=== PATIENT | female | born 1950 | race Hispanic/Latino ===

== ENCOUNTER 2018-03-30 20:06 | Emergency (ER) | payer OTHER, MEDICARE ==
[2018-03-30 21:29] LABS: BASOPHILS % (AUTO) 1.2 % (0.0-5.0); HEMATOCRIT 39.4 % (36-48); LYMPHOCYTES % (AUTO) 26.4 % (21.0-51.0); MEAN CORPUSCULAR HEMOGLOBIN 30.6 pg (27.0-33.0); MEAN CORPUSCULAR HGB CONC 33.3 g/dL (32.0-36.0); MEAN CORPUSCULAR VOLUME 92.1 fL (79-99); NEUTROPHILS % (AUTO) 61.4 % (40.0-77.0); NUCLEATED RED BLOOD CELLS 0.1 % (0.0-0.19); PLATELET COUNT (AUTO) 216 K/uL (130-400); RED BLOOD CELL COUNT(AUTO) 4.28 MIL/uL (4.00-5.50); RED CELL DISTRIBUTION WIDTH 13.9 % (11.0-15.5); WHITE BLOOD COUNT (AUTO) 8.3 K/uL (4.8-10.8)
[2018-03-30 21:50] LABS: CREATININE 0.6 mg/dL (0.5-1.5); POTASSIUM 3.4 mmol/L (3.5-5.1)
[2018-03-30] MEDS ORDERED: KETOROLAC TROMETHAMINE 30MG/ML ONE (21:50)
[2018-03-30 21:55] LABS: ALBUMIN 3.3 g/dL (3.5-5.0); BILIRUBIN,TOTAL 0.3 mg/dL (0.2-1.0); TOTAL PROTEIN, SERUM 6.4 g/dL (6.0-8.3)
[2018-03-30 22:10] LABS: B-TYPE NATRIURETIC PEPTIDE 15 pg/mL (0-100)
[2018-03-30] MEDS ORDERED: POTASSIUM CHLORIDE 20 MEQ ERTAB PO ONE (23:14)
== END 2018-03-30 23:47 | disposition home or self-care (01) ==
LOC: EDH 20:06
DX: F41.9 Anxiety disorder, unspecified (principal); M13.811 Other specified arthritis, right shoulder; E78.5 Hyperlipidemia, unspecified; I10 Essential (primary) hypertension; E07.9 Disorder of thyroid, unspecified; G20 Parkinson's disease; I25.10 Atherosclerotic heart disease of native coronary artery without angina pectoris; Z95.0 Presence of cardiac pacemaker; Z88.8 Allergy status to other drugs, medicaments and biological substances
CPT/HCPCS: 36415; 71045; 80053; 82550; 83880; 84484; 85025; 93005; 96372; 99284; J1885

== ENCOUNTER → 2018-04-30 | Outpatient (CLI) | payer OTHER, MEDICARE | END | disposition home or self-care (01) | LOC: SHCH 11:40 | PROVIDERS: ATTEND Internal Medicine Cardiovascular Disease | DX: I35.1 Nonrheumatic aortic (valve) insufficiency (principal); I48.0 Paroxysmal atrial fibrillation; I47.0 Re-entry ventricular arrhythmia; Z95.0 Presence of cardiac pacemaker | CPT/HCPCS: 93306 ==

== ENCOUNTER → 2019-02-01 | Outpatient (CLI) | payer MEDICARE | END | disposition home or self-care (01) | LOC: OIH 14:28 | PROVIDERS: ATTEND Family Medicine | DX: M25.561 Pain in right knee (principal); M25.562 Pain in left knee | CPT/HCPCS: 73562 ==

== ENCOUNTER → 2019-03-07 | Outpatient (CLI) | payer OTHER, MEDICARE | END | disposition home or self-care (01) | LOC: RAH 14:58 | PROVIDERS: ATTEND Family Medicine | DX: G44.89 Other headache syndrome (principal); R31.9 Hematuria, unspecified | CPT/HCPCS: 70450; 76770 ==

== ENCOUNTER → 2022-02-18 | Outpatient (CLI) | payer MEDICARE ==
[2022-02-18 12:28] LABS: HEMATOCRIT 40.9 % (36-48)
== END | disposition home or self-care (01) ==
LOC: LAB 09:52
PROVIDERS: ATTEND Internal Medicine Cardiovascular Disease
DX: I48.0 Paroxysmal atrial fibrillation (principal)
CPT/HCPCS: 36415; 85014; 85018

== ENCOUNTER → 2022-10-07 | Outpatient (CLI) | payer OTHER, MEDICARE ==
[2022-10-07 12:13] LABS: BASOPHILS % (AUTO) 0.4 % (0.0-5.0); EOSINOPHILS % (AUTO) 3.8 % (0.0-8.0); HEMATOCRIT 43.9 % (36-48); LYMPHOCYTES % (AUTO) 26.6 % (21.0-51.0); MEAN CORPUSCULAR HEMOGLOBIN 29.7 pg (27.0-33.0); MEAN CORPUSCULAR HGB CONC 31.4 g/dL (32.0-36.0); MEAN CORPUSCULAR VOLUME 94.4 fL (79-99); MONOCYTES % (AUTO) 7.8 % (3.0-13.0); NEUTROPHILS % (AUTO) 61.1 % (40.0-77.0); PLATELET COUNT (AUTO) 263 K/uL (130-400); RED BLOOD CELL COUNT(AUTO) 4.65 MIL/uL (4.00-5.50); RED CELL DISTRIBUTION WIDTH 12.3 % (11.0-15.5); WHITE BLOOD COUNT (AUTO) 7.7 K/uL (4.8-10.8)
[2022-10-07 12:28] LABS: ALBUMIN 3.6 g/dL (3.5-5.0); CREATININE 0.6 mg/dL (0.5-1.5); DIGOXIN 0.77 ng/mL (0.50-2.00); TOTAL PROTEIN, SERUM 7.2 g/dL (6.0-8.3)
== END | disposition home or self-care (01) ==
LOC: LAB 08:43
PROVIDERS: ATTEND Internal Medicine Cardiovascular Disease
DX: I48.0 Paroxysmal atrial fibrillation (principal)
CPT/HCPCS: 36415; 80053; 80162; 85025

== ENCOUNTER → 2023-12-07 | Outpatient (CLI) | payer OTHER, MEDICARE ==
[2023-12-07 12:12] LABS: BASOPHILS # (AUTO) 0.05 K/uL (0.00-0.20); BASOPHILS % (AUTO) 0.5 % (0.0-5.0); EOSINOPHILS # (AUTO) 0.24 K/uL (0.00-0.70); EOSINOPHILS % (AUTO) 2.6 % (0.0-8.0); HEMATOCRIT 42.6 % (36-48); IMMATURE GRANULOCYTE ABSOLUTE 0.03 K/uL (0-1); LYMPHOCYTES # (AUTO) 2.1 K/uL (1.0-4.8); MEAN CORPUSCULAR HEMOGLOBIN 30.3 pg (27.0-33.0); MEAN CORPUSCULAR HGB CONC 32.6 g/dL (32.0-36.0); MEAN CORPUSCULAR VOLUME 92.8 fL (79-99); MONOCYTES # (AUTO) 0.6 K/uL (0.1-1.0); MONOCYTES % (AUTO) 6.9 % (3.0-13.0); NEUTROPHILS # (AUTO) 6.1 K/uL (1.8-7.7); NEUTROPHILS % (AUTO) 66.7 % (40.0-77.0); PLATELET COUNT (AUTO) 272 K/uL (130-400); RED BLOOD CELL COUNT(AUTO) 4.59 MIL/uL (4.00-5.50); RED CELL DISTRIBUTION WIDTH 12.3 % (11.0-15.5); WHITE BLOOD COUNT (AUTO) 9.1 K/uL (4.8-10.8)
[2023-12-07 12:34] LABS: CREATININE 0.6 mg/dL (0.5-1.0); MAGNESIUM 1.9 mg/dL (1.80-2.40); POTASSIUM 3.9 mmol/L (3.5-5.1)
== END | disposition home or self-care (01) ==
LOC: LAB 08:28
PROVIDERS: ATTEND Internal Medicine Cardiovascular Disease
DX: I48.0 Paroxysmal atrial fibrillation (principal); R53.83 Other fatigue; D68.59 Other primary thrombophilia
CPT/HCPCS: 36415; 80048; 83735; 85025

== ENCOUNTER 2024-02-27 23:38 | Inpatient (IN) | payer OTHER, MEDICARE ==
[~2024-02-27] VITALS: Ht 152.4 cm; Wt 56.5 kg
--- NOTE | 2024-02-28 00:02 | ERN ---
ED Note History of Present Illness Stated Complaint: ABD PAIN Chief Complaint: Abdominal Pain Time Seen by MD: 23:42 Dictation: PATIENT IS A 73-YEAR-OLD FEMALE HERE WITH HER GRANDDAUGHTER WITH COMPLAINTS OF BURPING ALL DAY WITH HER ABDOMEN DISTENDED AND IT IS GETTING WORSE. SHE ALSO STATES NOW IT IS MOVING INTO MY CHEST. NO FEVER NO CHILLS NO NAUSEA NO VOMITING. SHE STATES SHE WENT TO [facility] THIS MORNING WITH THE SAME COMPLAINT AND THEY GAVE ME A SHOT THAT MAKE MY STOMACH FEEL BETTER AND SAID IT WOULD GO AWAY. SHE STATES SHE IS PENDING A COLONOSCOPY AND ENDOSCOPY BY HER ORDNANCE ENGINEER, DR. BAH NEXT THURSDAY. Allergies: Coded Allergies: cefoxitin (Unverified Allergy, Unknown, 02/27/24) Past Medical History Past Medical History: Hypertension, Other Additional Past Medical Hx: PARKINSONS, THYROID. POOR HISTORIAN Surgical History: Hysterectomy, Pacer/AICD PSYCH History: no pertinent psych hx History: Not Applicable RN Note Reviewed/Agreed w/PFSH: Yes Review of System Dictation CONSTITUTIONAL: NEGATIVE EXCEPT FOR HPI HEAD/FACE: NEGATIVE EXCEPT FOR HPI EENT: NEGATIVE EXCEPT FOR HPI RESPIRATORY: NEGATIVE EXCEPT FOR HPI GASTROINTESTINAL/ABDOMINAL: NEGATIVE EXCEPT FOR HPI BELCHING WITH DISTENTION AND LOWER QUADRANT PAIN GENITOURINARY: NEGATIVE EXCEPT FOR HPI MUSCULOSKELETAL: NEGATIVE EXCEPT FOR HPI INTEGUMENTARY: NEGATIVE EXCEPT FOR HPI NEUROLOGICAL/PSYCH: NEGATIVE EXCEPT FOR HPI HEMATOLOGIC/LYMPHATIC: NEGATIVE EXCEPT FOR HPI ALL SYSTEMS NEGATIVE, EXCEPT NOTED ABOVE. 13 POINT REVIEW OF SYSTEMS ASSESSED AND ALL NEGATIVE EXCEPT FOR ABOVE. Initial Vital Sign VS Vital Signs Date Time Temp Pulse Resp B/P (MAP) Pulse Ox O2 Delivery O2 Flow Rate FiO2 02/27/24 23:39 99.0 89 16 126/74 98 Room Air 02/28/24 00:02 0 21 Physical Exam Dictation VITAL SIGNS REVIEWED GENERAL APPEARANCE: ALERT, ORIENTED X 3, MODERATE ACUTE DISTRESS, WELL DEVELOPED, NOURISHED. HEAD AND FACE: NON-TRAUMATIC. EYES: PERRL, PINK CONJUNCTIVAS, EYELID NO TRAUMA, ANTERIOR CHAMBER WITH ARCUS SENILIS. EARS: PINNAS INTACT AND NO SIGNS OF TRAUMA OR ERYTHEMA EAR CANALS CLEAR AND NO DISCHARGE TM NO ERYTHEMA NOSE: NO DISCHARGE, NO BLEEDING. OROPHARYNX: MOUTH NORMAL, TONGUE PINK, PHARYNX CLEAR,NO ERYTHEMA, TONSILS NO EXUDATES, NO ABSCESSES NOTED, MUCOUS MEMBRANE MOIST NECK: SUPPLE, NON-TENDER, NO THYROMEGALY, NO MASSES, NO JVD, NO BRUITS BREAST:DEFERRED CHEST:NO TENDERNESS, NO CREPITUS, NO PARADOXICAL MOVEMENT, NO RETRACTIONS LUNGS:CLEAR, WELL-VENTILATED, SYMMETRIC, NO RALES, NO WHEEZING, NO RHONCHI, NO STRIDOR, GOOD BREATH SOUNDS BILATERALLY HEART: REGULAR RATE, REGULAR RHYTHM, NO MURMUR, NO GALLOPS VASCULAR: NO PERIPHERAL EDEMA, ABDOMEN: SOFT, POSITIVE BOWEL SOUNDS, NONDISTENDED, NO GUARDING, LEFT UPPER AND LOWER QUADRANT TENDERNESS WITH PALPATION. HYPOACTIVE BOWEL RECTAL: DEFERRED GENITAL: DEFERRED NEUROLOGICAL: NORMAL SPEECH, MOTOR FUNCTION INTACT, SENSORY FUNCTION INTACT MUSCULOSKELETAL: NECK NONTENDER, FULL RANGE OF MOTION, BACK NONTENDER, FULL RANGE OF MOTION, EXTREMITIES: NONTENDER, FULL RANGE OF MOTION SKIN: COLOR PINK, DRY, NO TURGOR, NO RASH, NO LACERATIONS, NO ABRASIONS, NO CONTUSIONS. LYMPHATIC: DEFERRED Results (Laboratory/Radiology) Laboratory/Radiology Laboratory Tests Test 02/27/24 23:59 02/28/24 01:25 White Blood Count 8.9 K/uL (4.8-10.8) Red Blood Count 4.33 MIL/uL (4.00-5.50) Hemoglobin 13.3 g/dL (12.0-16.0) Hematocrit 39.4 % (36-48) Mean Corpuscular Volume 91.0 fL (79-99) Mean Corpuscular Hemoglobin 30.7 pg (27.0-33.0) Mean Corpuscular Hemoglobin Concent 33.8 g/dL (32.0-36.0) Red Cell Distribution Width 11.9 % (11.0-15.5) Platelet Count 255 K/uL (130-400) Mean Platelet Volume 9.9 fL (7.5-10.5) Immature Granulocyte % (Auto) 0.3 % (0-1) Neutrophils (%) (Auto) 67.1 % (40.0-77.0) Lymphocytes (%) (Auto) 23.0 % (21.0-51.0) Monocytes (%) (Auto) 9.1 % (3.0-13.0) Eosinophils (%) (Auto) 0.2 % (0.0-8.0) Basophils (%) (Auto) 0.3 % (0.0-5.0) Neutrophils # (Auto) 6.0 K/uL (1.8-7.7) Lymphocytes # (Auto) 2.1 K/uL (1.0-4.8) Monocytes # (Auto) 0.8 K/uL (0.1-1.0) Eosinophils # (Auto) 0.02 K/uL (0.00-0.70) Basophils # (Auto) 0.03 K/uL (0.00-0.20) Absolute Immature Granulocyte (auto 0.03 K/uL (0-1) Nucleated Red Blood Cells 0.0 % (0.0-0.19) Sodium Level 137 mmol/L (136-145) Potassium Level 3.1 mmol/L (3.5-5.1) L Chloride Level 100 mmol/L (101-111) L Carbon Dioxide Level 29 mmol/L (21-32) Blood Urea Nitrogen 7 mg/dL (7-18) Creatinine 0.7 mg/dL (0.5-1.0) Glomerular Filtration Rate Calc 91 mL/min (>90) Random Glucose 110 mg/dL (70-105) H Total Calcium 9.3 mg/dL (8.5-10.1) Magnesium Level 2.00 mg/dL (1.80-2.40) Total Bilirubin 0.5 mg/dL (0.2-1.0) Direct Bilirubin 0.1 mg/dL (0.0-0.3) Aspartate Amino Transf (AST/SGOT) 11 U/L (10-37) Alanine Aminotransferase (ALT/SGPT) < 6 U/L (12-78) L Alkaline Phosphatase 69 U/L (50-136) Troponin I High Sensitivity 6 ng/L (4-50) Total Protein 6.6 g/dL (6.0-8.3) Albumin 3.7 g/dL (3.5-5.0) Lipase 24 U/L (16-77) Urine Color COLORLESS (YELLOW) Urine Appearance CLEAR (CLEAR) Urine pH 7.5 (5.0-8.0) Urine Specific [place] 1.002 (1.001-1.031) Urine Protein NEGATIVE mg/dL (NEGATIVE) Urine Glucose (UA) NEGATIVE mg/dL (NEGATIVE) Urine Ketones NEGATIVE mg/dL (NEGATIVE) Urine Occult Blood NEGATIVE (NEGATIVE) Urine Nitrate NEGATIVE (NEGATIVE) Urine Bilirubin NEGATIVE mg/dL (NEGATIVE) Urine Urobilinogen 0.2 mg/dL (0.2-1.0) Urine Leukocyte Esterase 75 Artie/uL (NEGATIVE) H Urine RBC 0-1 /HPF (0-1) Urine WBC 6-10 /HPF (0-1) H Urine Squamous Epithelial Cells FEW /HPF (0-2) Urine Bacteria FEW /HPF (None Seen) REASON: LEFT LOWER QUADRANT PAIN WITH BLOATING ORDERING PHYSICIAN: JENNIFER DUCKWORTH NP PROCEDURE: ABD PEL W - CT ABDOMEN/PELVIS W/CONTRAST CT ABDOMEN/PELVIS W/CONTRAST HISTORY: Pain COMPARISON: None TECHNIQUE: Multiple sequential axial images of the abdomen and pelvis were obtained from the dome of the diaphragm through symphysis pubis. Patient was given 75 cc of Omnipaque through intravenous route. Oral contrast was not given. FINDINGS: No pleural effusion is seen bilaterally. There is no evidence of parenchymal disease or pulmonary nodule of the visualized lower lungs. Degenerative changes of the thoracolumbar spine are present. The heart is not enlarged. Gallstones are seen in the distended gallbladder. Liver measures 16 cm. The liver, spleen, adrenal glands and pancreas are unremarkable. There is no evidence of hydronephrosis bilaterally. No evidence of renal stone is seen. Fecal material is seen in the colon. There are normal size retroperitoneal and mesenteric lymph nodes. No ascites is seen. Atherosclerotic changes are present. No CT evidence of acute appendicitis is seen. There is mild diverticulosis. Pelvic sidewalls are symmetric bilaterally. Bladder is well distended without wall thickening. IMPRESSION: 1. Gallstones in the distended gallbladder. Fecal material in the colon. CHEST 1VW HISTORY: Shortness of breath COMPARISON: 03/30/2018 FINDINGS: A frontal projection of the chest was obtained. No acute pulmonary infiltrates is seen. The heart is borderline enlarged. Pacemaker is seen entering from the left. Degenerative changes are seen. No evidence of aortic calcification is seen. IMPRESSION: 1. No acute pulmonary infiltrate is seen. Labs Reviewed?: Yes EKG Comment: EKG sinus rhythm/heart rate left ventricular hypertrophy noted anterior leads QT interval 509 milliseconds 8 ED Course ED Course Orders Procedure Category Date Status Time Cbc With Differential LAB 02/27/24 Complete 23:40 Basic Metabolic Panel LAB 02/27/24 Complete 23:40 Troponin I High LAB 02/27/24 Complete Sensitivity 23:40 Magnesium LAB 02/27/24 Complete 23:40 Chest 1vw RAD 02/27/24 Resulted 23:40 12 Lead Ekg Tracing- EKG 02/27/24 Logged Technical 23:40 Urinalysis Profile LAB 02/27/24 Complete 23:40 Lipase LAB 02/27/24 Complete 23:40 Hepatic Function Panel LAB 02/27/24 Complete 23:40 Ct Abdomen/Pelvis CT 02/27/24 Resulted W/Contrast 23:56 0.9%Nacl 1000ml (Ns PHA 02/28/24 Complete 1000ml) 00:00 Ketorolac PHA 02/28/24 Complete Tromethamine 15mg/Ml 00:00 Iohexol (Omnipaque) PHA 02/28/24 Complete 00:41 Potassium Bicarb/Cit PHA 02/28/24 Complete Ac 25meq (K-Lyte Ta 01:00 Culture Urine VERN 02/28/24 In Process 01:38 Magnesium Citrate PHA 02/28/24 Complete (Magnesium Citrate) 02:00 Lactulose 20 Gm/30 Ml PHA 02/28/24 Complete Udcup (Constulose 02:00 Levofloxacin 500 PHA 02/28/24 In Process Mg/D5w 100 Ml 02:30 Current Medications Medications (Trade) Dose Ordered Sig/Sridevi Route PRN Reason Start Time Stop Time Status Last Admin Dose Admin Iohexol (Omnipaque) 75 ml STK-MED ONCE IV 02/28/24 00:41 02/28/24 00:42 DC Ketorolac Tromethamine (toRADol) 15 mg ONCE ONCE IV 02/28/24 00:00 02/28/24 00:01 DC 02/28/24 00:09 Lactulose (Constulose 20gm/ 30ml Udcup) 20 gm ONCE ONCE PO 02/28/24 02:00 02/28/24 02:01 DC 02/28/24 01:50 Levofloxacin/ Dextrose 100 ml @ 100 mls/hr Q24H IV 02/28/24 02:30 03/09/24 02:29 Magnesium Citrate (Magnesium Citrate) 296 ml ONCE ONCE PO 02/28/24 02:00 02/28/24 02:01 DC 02/28/24 01:50 Potassium Bicarbonate (K-Lyte Tablet Eff 25 Meq Tablet.eff) 25 meq ONCE ONCE PO 02/28/24 01:00 02/28/24 01:01 DC 02/28/24 01:07 Sodium Chloride 1,000 ml @ 0 mls/hr ONCE ONCE IV 02/28/24 00:00 02/28/24 00:01 DC 02/28/24 00:09 Vital Signs Date Time Temp Pulse Resp B/P (MAP) Pulse Ox O2 Delivery O2 Flow Rate FiO2 02/28/24 01:10 75 19 125/41 100 Room Air* 0 21 02/28/24 00:02 81 18 148/69 100 Room Air* 0 21 02/27/24 23:39 99.0 89 16 126/74 98 Room Air 0135, SPOKE WITH DR. KIDD AND REVIEWED LABS CT AND FINDINGS AT THIS TIME HE WANTS PATIENT BE TREATED FOR ACUTE CONSTIPATION WITH LACTULOSE 30 ML AND MAGNESIUM CITRATE TO TREAT FOR CONSTIPATION 0220, SPOKE WITH DR. KIDD NOW AFTER URINE RECEIVED AND SHE HAS A URINARY TRACT INFECTION HE AGREED TO ADMIT PATIENT. HEART Score Response (Comments) Value EKG: Repolarization changes 1 Age: > 65yrs (+2) 2 Risk Factors: 1-2 risk factors (+1) 1 Initial Troponin: Normal limit (0) 0 Total 4 Medical Decision Making MDM MDM: DIFFERENTIAL DIAGNOSIS: APPENDICITIS/CHOLELITHIASIS/CHOLEDOCHOLITHIASIS/CONSTIPATION/DIVERTICULITIS/PANC REATITIS/UTI/ACS RATIONALE: TESTS CONSIDERED AND ORDERED SECONDARY TO SHARED DECISION MAKING INCLUDE: LABS, ECG AND RADIOLOGY PREVIOUS OUTSIDE RECORDS REVIEWED: OLD ER VISITS. REVIEWED RISK OF COMPLICATION AND/OR MORBIDITY OR MORTALITY OF PATIENT MANAGEMENT: NONE MEDICATIONS-PER MEDICATION RECONCILIATION NEED FOR HOSPITALIZATION: PATIENT DOES MEET CRITERIA FOR HOSPITALIZATION. PAIN MANAGEMENT AND PROBABLE SURGICAL EVALUATION FOR DEBBIE LITHIASIS AND BILIARY COLIC ALSO REHYDRATION NEED FOR EMERGENCY MAJOR/MINOR SURGERY: NO THERE ARE NO SOCIAL CONCERNS WITH THIS PATIENT. PRESCRIPTION DRUG MANAGEMENT PRESCRIPTIONS WILL INCLUDE SYMPTOMATIC CARE PATIENT'S PRIOR EXTERNAL MEDICAL RECORDS FROM OTHER ER VISITS WERE REVIEWED BY ME INDICATED. PRIOR TESTING AND RESULTS FROM PREVIOUS VISITS WERE REVIEWED. PRIOR TESTS WERE TAKEN INTO ACCOUNT WITH MEDICAL DECISION MAKING AND RESOURCE UTILIZATION, INDEPENDENT HISTORIAN/HISTORIANS WERE USED TO OBTAIN COMPLETE MEDICAL HISTORY. I INDEPENDENTLY INTERPRETED THE TEST THAT WERE PERFORMED, RESULTS WERE REVIEWED BY ME AND CONSIDERED FINDINGS ON RADIOLOGY IF ORDERED. MEDICAL MANAGEMENT AND EXAMINATION INTERPRETATION DISCUSSIONS WERE HAD BY ME WITH OTHER QUALIFIED HEALTHCARE PROFESSIONALS INDICATED FOR THE PATIENT'S CARE. DX & DISP Disposition: Inpatient Decision to Admit Time: 01:41 Departure Impression: Primary Impression: Cholelithiasis Additional Impressions: Biliary colic, Constipation, Acute UTI, Hypokalemia, Hypochloremia, Intractable abdominal pain Condition: Stable Referrals: BOGDAN BOYD MD (PCP) Time of Disposition: 02:23 I have reviewed the case, and I agree with, Diagnosis and Plan JENNIFER DUCKWORTH NP Feb 28, 2024 00:01
[2024-02-28] MEDS: ketOROlac 15MG/ML VIAL (15MG/ML) IV ONE (00:09)
[2024-02-28] MEDS: 0.9%NACL 1000ML 1,000 ML IV ONE (00:09)
[2024-02-28 00:26] LABS: ALBUMIN 3.7 g/dL (3.5-5.0); ASPARTATE AMINOTRANSFERASE 11 U/L (10-37); BILIRUBIN,DIRECT 0.1 mg/dL (0.0-0.3); BILIRUBIN,TOTAL 0.5 mg/dL (0.2-1.0); CARBON DIOXIDE 29 mmol/L (21-32); CHLORIDE 100 mmol/L (101-111); CREATININE 0.7 mg/dL (0.5-1.0); GLOMERULAR FILTR. RATE CALC 91 mL/min (>90); GLUCOSE,RANDOM 110 mg/dL (70-105); POTASSIUM 3.1 mmol/L (3.5-5.1); SODIUM SERUM 137 mmol/L (136-145); TOTAL PROTEIN, SERUM 6.6 g/dL (6.0-8.3); UREA NITROGEN, BLOOD 7 mg/dL (7-18)
[2024-02-28 00:29] LABS: ALANINE AMINOTRANSFERASE < 6 U/L (12-78)
[2024-02-28 00:35] LABS: BASOPHILS # (AUTO) 0.03 K/uL (0.00-0.20); BASOPHILS % (AUTO) 0.3 % (0.0-5.0); EOSINOPHILS # (AUTO) 0.02 K/uL (0.00-0.70); EOSINOPHILS % (AUTO) 0.2 % (0.0-8.0); HEMATOCRIT 39.4 % (36-48); IMMATURE GRANULOCYTE ABSOLUTE 0.03 K/uL (0-1); LYMPHOCYTES # (AUTO) 2.1 K/uL (1.0-4.8); MEAN CORPUSCULAR HEMOGLOBIN 30.7 pg (27.0-33.0); MEAN CORPUSCULAR HGB CONC 33.8 g/dL (32.0-36.0); MONOCYTES # (AUTO) 0.8 K/uL (0.1-1.0); MONOCYTES % (AUTO) 9.1 % (3.0-13.0); NEUTROPHILS % (AUTO) 67.1 % (40.0-77.0); PLATELET COUNT (AUTO) 255 K/uL (130-400); RED BLOOD CELL COUNT(AUTO) 4.33 MIL/uL (4.00-5.50); RED CELL DISTRIBUTION WIDTH 11.9 % (11.0-15.5); WHITE BLOOD COUNT (AUTO) 8.9 K/uL (4.8-10.8)
[2024-02-28] MEDS ORDERED: IOHEXOL-350 75 ML VIAL IV ONE (00:41)
[2024-02-28] MEDS: PoTASSium BIcarbonate/CIT AC 25 MEQ TABLET.EFF PO ONE (01:07)
--- NOTE | 2024-02-28 01:24 | HMCIMG ---
CT ABDOMEN/PELVIS W/CONTRAST HISTORY: Pain COMPARISON: None TECHNIQUE: Multiple sequential axial images of the abdomen and pelvis were obtained from the dome of the diaphragm through symphysis pubis. Patient was given 75 cc of Omnipaque through intravenous route. Oral contrast was not given. FINDINGS: No pleural effusion is seen bilaterally. There is no evidence of parenchymal disease or pulmonary nodule of the visualized lower lungs. Degenerative changes of the thoracolumbar spine are present. The heart is not enlarged. Gallstones are seen in the distended gallbladder. Liver measures 16 cm. The liver, spleen, adrenal glands and pancreas are unremarkable. There is no evidence of hydronephrosis bilaterally. No evidence of renal stone is seen. Fecal material is seen in the colon. There are normal size retroperitoneal and mesenteric lymph nodes. No ascites is seen. Atherosclerotic changes are present. No CT evidence of acute appendicitis is seen. There is mild diverticulosis. Pelvic sidewalls are symmetric bilaterally. Bladder is well distended without wall thickening. IMPRESSION: 1. Gallstones in the distended gallbladder. Fecal material in the colon. CT was performed with one or more following dose reduction techniques: automated exposure control, adjustment of the mA and kv according to patient's size, or use of a iterative reconstruction technique.
--- NOTE | 2024-02-28 01:25 | HMCIMG ---
CHEST 1VW HISTORY: Shortness of breath COMPARISON: 03/30/2018 FINDINGS: A frontal projection of the chest was obtained. No acute pulmonary infiltrates is seen. The heart is borderline enlarged. Pacemaker is seen entering from the left. Degenerative changes are seen. No evidence of aortic calcification is seen. IMPRESSION: 1. No acute pulmonary infiltrate is seen.
[2024-02-28 01:36] LABS: APPEARANCE,URINE CLEAR (CLEAR); BILIRUBIN,URINE NEGATIVE (NEGATIVE); COLOR,URINE COLORLESS (YELLOW); GLUCOSE, URINE (UA) NEGATIVE (NEGATIVE); KETONES,URINE NEGATIVE (NEGATIVE); LEUKOCYTE ESTERASE ,URINE 75 Leu/uL (NEGATIVE); NITRATE,URINE NEGATIVE (NEGATIVE); OCCULT BLOOD,URINE NEGATIVE (NEGATIVE); PH,URINE 7.5 (5.0-8.0); PROTEIN,URINE NEGATIVE (NEGATIVE); UROBILINOGEN,URINE 0.2 mg/dL (0.2-1.0)
[2024-02-28 01:38] LABS: ADD UA MICROSCOPIC YES
[2024-02-28] MEDS: MAGNESIUM CITRATE 296 ML SOLUTION PO ONE ×2 (01:50→18:41)
[2024-02-28] MEDS: LACTULOSE 20 GM/30 ML UDCUP PO ONE ×2 (01:50→18:41)
[2024-02-28 01:51] LABS: BACTERIA,URINE FEW /HPF (None Seen); RBC,URINE 0-1 /HPF (0-1); SQUAMOUS EPITHELIAL CELL,UR FEW /HPF (0-2)
--- NOTE | 2024-02-28 01:56 | NUR ---
PATIENT DID NOT BRING HOME MEDICATIONS
[2024-02-28] MEDS ORDERED: ondanSETRON 4MG INJ IVP PRN (02:30)
[2024-02-28] MEDS: cefTRIAXone 1G VIAL IVPB SCH (02:41)
[2024-02-28] MEDS: levoFLOXacin 500 MG/D5W 100 ML 100 ML IV SCH (02:46)
[2024-02-28] MEDS: acetaMINOPHEN 325 MG TAB PO PRN (02:53)
[2024-02-28 03:05] VITALS: BP 103/61; PULSE 75; RESP 18; TEMP 98.1; O2SAT 98
--- NOTE | 2024-02-28 07:06 | EKG ---
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
[2024-02-28] MEDS ORDERED: LEVO100T12 PO (07:44)
[2024-02-28] MEDS ORDERED: ROTI1PAT8 TD (07:44)
[2024-02-28] MEDS ORDERED: CARB-38 PO (07:44)
[2024-02-28] MEDS ORDERED: CARB1TAB35 PO (07:54)
[2024-02-28 08:00] VITALS: BP 123/59; PULSE 78; RESP 19; TEMP 98.1; O2SAT 98
[2024-02-28] MEDS: ENOXAPARIN SODIUM 30 MG/0.3 ML SQ SCH (09:34)
[2024-02-28] MEDS: polyETHYLene GLYCol 3350 17 GM POWD.PACK PO SCH (09:34)
--- NOTE | 2024-02-28 11:30 | NUR ---
Discharge Planning: Pt. states she lives with her son and her grandchildren. PCP is Dr. Brambila and preferred pharmacy is [facility] in [place]. Pt. states she is independent with all ADL's. No DME at home. States she has provider services 32 hours weekly. On room air, no hemodialysis. DCP is for home. No d/c needs at this time. Addendum: 02/28/24 at 1132 by ILYA BURNETT RN CM Amended: Links added.
[2024-02-28 12:00] VITALS: BP 112/56; PULSE 71; RESP 18; TEMP 98.8
[2024-02-28] MEDS ORDERED: CITA-107 PO (12:59)
[2024-02-28] MEDS ORDERED: DIGO125T71 PO (12:59)
[2024-02-28] MEDS ORDERED: MONT-39 PO (12:59)
[2024-02-28] MEDS ORDERED: METO-391 PO (12:59)
[2024-02-28] MEDS ORDERED: APIX5TAB PO (12:59)
[2024-02-28] MEDS ORDERED: FAMO20TA8 PO (12:59)
[2024-02-28] MEDS ORDERED: PHARMACY COMMUNICATION MISC SCH (13:30)
[2024-02-28] MEDS: CARBIDOPA-LEVODOPA 25-100 TAB PO SCH (13:38)
[2024-02-28 16:00] VITALS: BP 129/61; PULSE 87; RESP 19; TEMP 98.7
--- NOTE | 2024-02-28 17:57 | CONS ---
CONSULTATION NOTE Date of Service: Feb 28, 2024 Reason for Consultation: [ Gallstones and constipation] Requesting Physician: [Uzair Torres MD ] HISTORY OF PRESENT ILLNESS: [Patient has been in and out of the hospital over the last few weeks with abdo tamera pain and discomfort as well as abdominal distention. Patient was told that she had constipation was sent home from another facility. Patient came to this hospital because she had persistent symptoms. Patient indicates that she had been moving her bowels however she still felt bloated and uncomfortable. Patient denies any melena, hematochezia, hematuria. Pain was localized generally trialed the entire abdomen. CT scan done at this hospital which I personally reviewed showed stool throughout the entire colon with a large amount of stool within the rectal vault. Patient also has a slightly distended gallbladder with multiple gallstones within it. Patient indicates that she had what she describes as a gallstone ileus a number of years ago and underwent surgical intervention for that. Patient also has Parkinson disease with coronary artery disease that required her having pacemaker. Patient is also currently on blood thinners. ] REVIEW OF SYSTEMS CONSTITUTIONAL: Denies fever, chills, or fatigue. HEAD/FACE: No signs of trauma. EENT: Denies eye pain, blurred vision, double vision, or light sensitivity. RESPIRATORY: Denies shortness of breath, cough, wheezing CARDIOVASCULAR: Denies chest pain, palpitation, syncope GASTROINTESTINAL/ABDOMINAL: Abdominal distention and discomfort GENITOURINARY: Denies dysuria or hematuria. MUSCULOSKELETAL: Denies joint pain, tenderness, or trauma. INTEGUMENTARY: Denies rash or itchiness NEUROLOGICAL/PSYCH: Denies anxiety, depression, heat or cold intolerance. PAST MEDICAL HISTORY: [ Hypertension, Parkinson's disease, hypothyroidism, coronary artery disease,] PAST SURGICAL HISTORY: [ Hysterectomy, placement of pacemaker, exploration for gallstone ileus ] PAST SOCIAL HISTORY: [Patient denies any illicit drug use ] FAMILY HISTORY: [ Noncontributory ] Coded Allergies: cefoxitin (Unverified Allergy, Unknown, 02/27/24) PHYSICAL EXAM PHYSICAL EXAM EYES: Sclera white HENT: Oral nasal mucosa pink and moist NECK: Supple, . LUNGS: Unlabored CARDIOVASCULAR: Regular rate and rhythm ABDOMEN: Soft, slightly distended, nontender CENTRAL NERVOUS SYSTEM: Awake, alert, oriented x3, patient does appear to have a tremor mainly on her left upper extremity. SKIN: No rashes, no swelling. LYMPHATICS: No peripheral lymphadenopathy MUSCULOSKELETAL: Motor and sensory function grossly intact EXTREMITIES: No cyanosis or clubbing BACK: No deformity, no pressure ulcer. GENITOURINARY: No CVA tenderness Vital Sign (Last 24 Hours) 02/28/24 02/28/24 08:00 16:00 Temp 98.8 Pulse 87 Resp 19 B/P (MAP) 129/61 Pulse Ox 96 O2 Delivery Room Air O2 Flow Rate 0 FiO2 21 Intake & Output (last 24hrs) 02/27/24 02/27/24 02/28/24 15:00 23:00 07:00 Intake Total 1000.0 ml Balance 1000.0 ml LABS: Laboratory: Test 02/28/24 01:25 02/27/24 23:59 Range/Units Urine Color COLORLESS YELLOW Urine Appearance CLEAR CLEAR Urine pH 7.5 5.0-8.0 Urine Specific [place] 1.002 1.001-1.031 Urine Protein NEGATIVE NEGATIVE mg/dL Urine Glucose (UA) NEGATIVE NEGATIVE mg/dL Urine Ketones NEGATIVE NEGATIVE mg/dL Urine Occult Blood NEGATIVE NEGATIVE Urine Nitrate NEGATIVE NEGATIVE Urine Bilirubin NEGATIVE NEGATIVE mg/dL Urine Urobilinogen 0.2 0.2-1.0 mg/dL Urine Leukocyte Esterase 75 H NEGATIVE Artie/uL Urine RBC 0-1 0-1 /HPF Urine WBC 6-10 H 0-1 /HPF Urine Squamous Epithelial Cells FEW 0-2 /HPF Urine Bacteria FEW None Seen /HPF White Blood Count 8.9 4.8-10.8 K/uL Red Blood Count 4.33 4.00-5.50 MIL/uL Hemoglobin 13.3 12.0-16.0 g/dL Hematocrit 39.4 36-48 % Mean Corpuscular Volume 91.0 79-99 fL Mean Corpuscular Hemoglobin 30.7 27.0-33.0 pg Mean Corpuscular Hemoglobin Concent 33.8 32.0-36.0 g/dL Red Cell Distribution Width 11.9 11.0-15.5 % Platelet Count 255 130-400 K/uL Mean Platelet Volume 9.9 7.5-10.5 fL Immature Granulocyte % (Auto) 0.3 0-1 % Neutrophils (%) (Auto) 67.1 40.0-77.0 % Lymphocytes (%) (Auto) 23.0 21.0-51.0 % Monocytes (%) (Auto) 9.1 3.0-13.0 % Eosinophils (%) (Auto) 0.2 0.0-8.0 % Basophils (%) (Auto) 0.3 0.0-5.0 % Neutrophils # (Auto) 6.0 1.8-7.7 K/uL Lymphocytes # (Auto) 2.1 1.0-4.8 K/uL Monocytes # (Auto) 0.8 0.1-1.0 K/uL Eosinophils # (Auto) 0.02 0.00-0.70 K/uL Basophils # (Auto) 0.03 0.00-0.20 K/uL Absolute Immature Granulocyte (auto 0.03 0-1 K/uL Nucleated Red Blood Cells 0.0 0.0-0.19 % Sodium Level 137 136-145 mmol/L Potassium Level 3.1 L 3.5-5.1 mmol/L Chloride Level 100 L 101-111 mmol/L Carbon Dioxide Level 29 21-32 mmol/L Blood Urea Nitrogen 7 7-18 mg/dL Creatinine 0.7 0.5-1.0 mg/dL Glomerular Filtration Rate Calc 91 >90 mL/min Random Glucose 110 H 70-105 mg/dL Total Calcium 9.3 8.5-10.1 mg/dL Magnesium Level 2.00 1.80-2.40 mg/dL Total Bilirubin 0.5 0.2-1.0 mg/dL Direct Bilirubin 0.1 0.0-0.3 mg/dL Aspartate Amino Transf (AST/SGOT) 11 10-37 U/L Alanine Aminotransferase (ALT/SGPT) < 6 L 12-78 U/L Alkaline Phosphatase 69 50-136 U/L Troponin I High Sensitivity 6 4-50 ng/L Total Protein 6.6 6.0-8.3 g/dL Albumin 3.7 3.5-5.0 g/dL Lipase 24 16-77 U/L DIAGNOSTICS / RADIOLOGY: [ ] ASSESSMENT: [ Currently patient appears to have two problems. One is constipation and the other is gallstones causing her discomfort. ] PLAN: [Initially we will need to get cardiac clearance on this patient. During the process of getting cardiac clearance we will also manage elevation by giving her a bowel regimen to try to a sister clubbing constipation. Once it was clotted clearance was obtained we will take the patient back to the OR for a laparoscopic cholecystectomy with intraoperative cholangiogram. Risks associated with the surgery not limited to infection, bleeding, injury to mitchell rrounding structures has been explained to patient and she indicates she understands.. ] PRIYANK GAXIOLA MD Feb 28, 2024 17:57
[2024-02-28] MEDS: MAGNESIUM HYDROXIDE 30 ML/UDCUP PO ONE (18:41)
[2024-02-28] MEDS: BisaCODYL 10 MG SUPP.RECT RC ONE (18:42)
--- NOTE | 2024-02-28 19:05 | HMCIMG ---
US ABDOMINAL RUQ\E\LTD HISTORY: Gallstones COMPARISON: None TECHNIQUE: Right upper quadrant abdominal ultrasound study was performed. FINDINGS: Liver measured 13 cm. The visualized portion of the pancreas is within normal limits. Liver is echogenic consistent with liver parenchymal disease. Gallstones are seen in the gallbladder. Portal vein is patent. Common duct measures 3 mm. No evidence of gallbladder wall thickening is seen. Right kidney measures 9.3 x 4 x 3.5 cm. No hydronephrosis is seen of the right kidney. IMPRESSION: 1. Gallstones. No ductal dilatation is seen. 2. No hydronephrosis is seen.
[2024-02-28 20:18] VITALS: BP 119/67; PULSE 99; RESP 18; TEMP 98.8
[2024-02-28] MEDS: metOPROLol sucCINATE 50 MG TAB.SR.24H PO SCH (20:56)
[2024-02-28] MEDS: FAMOTIDINE 20MG TAB PO SCH (20:57)
[2024-02-28] MEDS: APIXaban 5 MG TABLET PO SCH (20:57)
[2024-02-28 21:02] VITALS: O2SAT 98
--- NOTE | 2024-02-28 21:23 | HP ---
DATE OF SERVICE: 02/28/2024. HISTORY AND PHYSICAL PRESENTING COMPLAINT: Abdominal pain, nausea and vomiting. HISTORY OF PRESENT ILLNESS: A 73-year-old female with history of Parkinson's disease, hypertension, who presented to the hospital with the above complaint. Pain localized to the right side has some nausea and vomiting. The patient had a CT of the abdomen done, which shows constipation and gallstone with distended gallbladder. No dysuria, no frequency. No rashes or itchiness. Denies sick contact. PAST MEDICAL HISTORY: * Parkinson's disease. * Hypertension. * Atrial fibrillation, on Eliquis. PAST SURGICAL HISTORY: * AICD placement. * Hysterectomy. ALLERGIES: No known drug allergies. HOME MEDICATIONS: Reviewed, include: * Eliquis. * Sinemet. * Lisinopril. SOCIAL HISTORY: Lives with family. No alcohol, tobacco or illicit drug use. FAMILY HISTORY: Noncontributory. REVIEW OF SYSTEMS: Greater than 10-systems were reviewed, negative except as documented above. PHYSICAL EXAMINATION: GENERAL: Elderly female, awake, not in distress, afebrile to touch. VITAL SIGNS: Temperature 98.1, pulse 70, respiratory rate 19, and BP 123/59. EYES: No icterus. Pupils equal and reactive. HENT: No oral thrush seen. Moist oral mucosa. NECK: Supple, no JVD or thyromegaly. LUNGS: Good air entry. No rales, no rhonchi. CARDIOVASCULAR: S1, S2 regular. No murmur heard. ABDOMEN: Full, soft. Bowel sounds present. Nontender. CENTRAL NERVOUS SYSTEM: Awake, alert, and oriented x 3. No focal deficits. SKIN: No rashes, no itchiness. LYMPHATIC: No peripheral lymphadenopathy. HEMATOLOGIC: No bleeding or petechial lesions seen. MUSCULOSKELETAL: No joint swelling, erythema or tenderness. LABORATORY DATA: Sodium 137, potassium 3.1, BUN 7, and creatinine 0.7. WBC 8.9, hemoglobin 13.3, and platelet 255. Urinalysis; wbc's 10, leukocyte esterase 75. RADIOLOGY: CT of the abdomen showed gallstones with distended gallbladder and fecal material in the colon. ASSESSMENT: A 73-year-old female presenting with abdominal pain. CURRENT PROBLEMS: Include: * Urinary tract infection. * Possible cholecystitis. * Hypertension. * Hypokalemia. * Atrial fibrillation. PLAN: * The patient will be admitted to medical floor. * Start the patient on ceftriaxone. * Obtain abdominal sonogram. * Continue antiarrhythmic agent. * Continue antihypertensive. * Monitor electrolytes. * General surgery evaluation. * Home medication will be reconciled. TID: [id number] RECEIPT: [id number] [facility]
[2024-02-29] VITALS (8 sets, daily range): BP systolic 101–131; BP diastolic 39–67; PULSE 69–91; RESP 17–19; TEMP 97.6–98.7; O2SAT 98
[2024-02-29 04:51] LABS: BASOPHILS # (AUTO) 0.02 K/uL (0.00-0.20); BASOPHILS % (AUTO) 0.3 % (0.0-5.0); EOSINOPHILS # (AUTO) 0.04 K/uL (0.00-0.70); EOSINOPHILS % (AUTO) 0.6 % (0.0-8.0); HEMATOCRIT 41.6 % (36-48); IMMATURE GRANULOCYTE ABSOLUTE 0.03 K/uL (0-1); LYMPHOCYTES # (AUTO) 1.4 K/uL (1.0-4.8); LYMPHOCYTES % (AUTO) 21.8 % (21.0-51.0); MEAN CORPUSCULAR HEMOGLOBIN 30.6 pg (27.0-33.0); MEAN CORPUSCULAR HGB CONC 32.5 g/dL (32.0-36.0); MEAN CORPUSCULAR VOLUME 94.3 fL (79-99); MONOCYTES # (AUTO) 0.7 K/uL (0.1-1.0); MONOCYTES % (AUTO) 11.6 % (3.0-13.0); NEUTROPHILS # (AUTO) 4.1 K/uL (1.8-7.7); NEUTROPHILS % (AUTO) 65.2 % (40.0-77.0); PLATELET COUNT (AUTO) 247 K/uL (130-400); RED BLOOD CELL COUNT(AUTO) 4.41 MIL/uL (4.00-5.50); RED CELL DISTRIBUTION WIDTH 12.2 % (11.0-15.5); WHITE BLOOD COUNT (AUTO) 6.3 K/uL (4.8-10.8)
[2024-02-29 05:10] LABS: CREATININE 0.7 mg/dL (0.5-1.0); MAGNESIUM 2.4 mg/dL (1.80-2.40); POTASSIUM 3.8 mmol/L (3.5-5.1)
[2024-02-29] MEDS: levoTHYROxine 100 MCG TABLET PO SCH (06:21)
[2024-02-29] MEDS: monteLUKAST sodIUM 10 MG TAB PO SCH (08:33)
[2024-02-29] MEDS: citaLOPram 20 MG TABLET PO SCH (08:34)
[2024-02-29] MEDS: DIGOxin 125 MCG TABLET PO SCH (08:34)
[2024-02-29] MEDS: ALPRAZolam 0.5 MG TABLET PO PRN (12:51)
--- NOTE | 2024-02-29 16:02 | PN ---
INFECTIOUS DISEASE PROGRESS NOTE Date of Service: Feb 29, 2024 SUBJECTIVE: This 73-year-old female patient was seen and examined bedside in room 408. Patient is awake, alert and oriented x3. Patient is NPO due to pending a HIDA scan. Patient has been evaluated by General surgery for possible acute cholecystitis. We will obtain a surgical clearance for possible at [facility]. Patient remains afebrile, temperature is 97. Currently continues on ceftriaxone IV every24 hours. Will continue to monitor patient. PHYSICAL EXAM EYES: Anicteric. Pupils equal and reactive. HENT: No oral thrush seen, moist Oral mucosa NECK: Supple, no JVD or thyromegaly. LUNGS: Good air entry. No rales, no rhonchi. CARDIOVASCULAR: S1, S2 regular. No murmur heard. ABDOMEN: Soft, non tender, bowel sounds present, no organomegaly CENTRAL NERVOUS SYSTEM: Awake, alert, oriented x 3. No focal deficits. SKIN: No rashes, no swelling. LYMPHATICS: No peripheral lymphadenopathy MUSCULOSKELETAL: No joint swelling, erythema or tenderness. EXTREMITIES: No cyanosis or clubbing BACK: No deformity, no pressure ulcer. GENITOURINARY: No dysuria or hematuria Vital Sign (Last 12 Hours) 02/29/24 02/29/24 02/29/24 02/29/24 04:13 08:00 08:34 12:09 Temp 98.4 97.5 97.9 Pulse 81 83 89 91 Resp 17 18 19 B/P (MAP) 120/67 131/66 131/62 Pulse Ox 96 97 96 O2 Delivery Room Air Room Air Room Air FiO2 21 LABS: Laboratory: Test 02/29/24 04:11 02/28/24 20:46 02/28/24 01:25 02/27/24 23:59 Range/Units White Blood Count 6.3 4.8-10.8 K/uL Red Blood Count 4.41 4.00-5.50 MIL/uL Hemoglobin 13.5 12.0-16.0 g/dL Hematocrit 41.6 36-48 % Mean Corpuscular Volume 94.3 79-99 fL Mean Corpuscular Hemoglobin 30.6 27.0-33.0 pg Mean Corpuscular Hemoglobin Concent 32.5 32.0-36.0 g/dL Red Cell Distribution Width 12.2 11.0-15.5 % Platelet Count 247 130-400 K/uL Mean Platelet Volume 9.8 7.5-10.5 fL Immature Granulocyte % (Auto) 0.5 0-1 % Neutrophils (%) (Auto) 65.2 40.0-77.0 % Lymphocytes (%) (Auto) 21.8 21.0-51.0 % Monocytes (%) (Auto) 11.6 3.0-13.0 % Eosinophils (%) (Auto) 0.6 0.0-8.0 % Basophils (%) (Auto) 0.3 0.0-5.0 % Neutrophils # (Auto) 4.1 1.8-7.7 K/uL Lymphocytes # (Auto) 1.4 1.0-4.8 K/uL Monocytes # (Auto) 0.7 0.1-1.0 K/uL Eosinophils # (Auto) 0.04 0.00-0.70 K/uL Basophils # (Auto) 0.02 0.00-0.20 K/uL Absolute Immature Granulocyte (auto 0.03 0-1 K/uL Nucleated Red Blood Cells 0.0 0.0-0.19 % Sodium Level 138 136-145 mmol/L Potassium Level 3.8 3.5-5.1 mmol/L Chloride Level 104 101-111 mmol/L Carbon Dioxide Level 25 21-32 mmol/L Blood Urea Nitrogen 7 7-18 mg/dL Creatinine 0.7 0.5-1.0 mg/dL Glomerular Filtration Rate Calc 91 >90 mL/min Random Glucose 82 70-105 mg/dL Total Calcium 8.9 8.5-10.1 mg/dL Magnesium Level 2.40 1.80-2.40 mg/dL Whole Blood Glucose 86 70-110 MG/DL Urine Color COLORLESS YELLOW Urine Appearance CLEAR CLEAR Urine pH 7.5 5.0-8.0 Urine Specific [place] 1.002 1.001-1.031 Urine Protein NEGATIVE NEGATIVE mg/dL Urine Glucose (UA) NEGATIVE NEGATIVE mg/dL Urine Ketones NEGATIVE NEGATIVE mg/dL Urine Occult Blood NEGATIVE NEGATIVE Urine Nitrate NEGATIVE NEGATIVE Urine Bilirubin NEGATIVE NEGATIVE mg/dL Urine Urobilinogen 0.2 0.2-1.0 mg/dL Urine Leukocyte Esterase 75 H NEGATIVE Artie/uL Urine RBC 0-1 0-1 /HPF Urine WBC 6-10 H 0-1 /HPF Urine Squamous Epithelial Cells FEW 0-2 /HPF Urine Bacteria FEW None Seen /HPF Total Bilirubin 0.5 0.2-1.0 mg/dL Direct Bilirubin 0.1 0.0-0.3 mg/dL Aspartate Amino Transf (AST/SGOT) 11 10-37 U/L Alanine Aminotransferase (ALT/SGPT) < 6 L 12-78 U/L Alkaline Phosphatase 69 50-136 U/L Troponin I High Sensitivity 6 4-50 ng/L Total Protein 6.6 6.0-8.3 g/dL Albumin 3.7 3.5-5.0 g/dL Lipase 24 16-77 U/L ASSESSMENT: Cholelithiasis with possible Cholecystitis. Urinary tract infection. Atrial fibrillation. Hypertension. PLAN: Pending a HIDA scan. Hold Eliquis. Consult Dr. Crawford for surgical clearance laparoscopic cholecystectomy. Continue ceftriaxone. Continue GI prophylaxis. General surgery has evaluated patient. We will monitor electrolytes. This case was reviewed and discussed with my supervising physician and the above assessment and plan was formulated and agreed upon. ATTESTATION BY PHYSICIAN I have seen and examined the patient. I reviewed the documentation, medical decision making, and treatment plan as noted by the mid-level provider above. I agree with the findings and plan of care. JIMENA KIDD MD, [facility]IRTA [facility] Feb 29, 2024 16:02
[2024-02-29] MEDS: MELATONIN 5 MG TABLET PO ONE (22:22)
[2024-03-01] VITALS (8 sets, daily range): BP systolic 101–142; BP diastolic 49–71; PULSE 66–94; RESP 17–18; TEMP 97.9–98.1; O2SAT 96
[2024-03-01 05:44] LABS: HEMATOCRIT 38.6 % (36-48); MEAN CORPUSCULAR HEMOGLOBIN 30.8 pg (27.0-33.0); MEAN CORPUSCULAR HGB CONC 32.9 g/dL (32.0-36.0); MEAN CORPUSCULAR VOLUME 93.5 fL (79-99); RED BLOOD CELL COUNT(AUTO) 4.13 MIL/uL (4.00-5.50); WHITE BLOOD COUNT (AUTO) 6.7 K/uL (4.8-10.8)
[2024-03-01 05:59] LABS: ALBUMIN 3.4 g/dL (3.5-5.0); ASPARTATE AMINOTRANSFERASE 13 U/L (10-37); BILIRUBIN,TOTAL 0.4 mg/dL (0.2-1.0); CARBON DIOXIDE 25 mmol/L (21-32); CHLORIDE 107 mmol/L (101-111); CREATININE 0.6 mg/dL (0.5-1.0); GLOMERULAR FILTR. RATE CALC 95 mL/min (>90); GLUCOSE,RANDOM 80 mg/dL (70-105); POTASSIUM 3.8 mmol/L (3.5-5.1); SODIUM SERUM 142 mmol/L (136-145); TOTAL PROTEIN, SERUM 6.3 g/dL (6.0-8.3); UREA NITROGEN, BLOOD 18 mg/dL (7-18)
[2024-03-01 06:01] LABS: ALANINE AMINOTRANSFERASE < 6 U/L (12-78)
--- NOTE | 2024-03-01 08:49 | HMCIMG ---
NM HIDA WO EF/CCK REASON: cholecystitis COMPARISON: None TECHNIQUE: Images are obtained following injection of 5.5 mCi technetium 99m Choletec. FINDINGS: There is prompt hepatic parenchymal uptake. There is prompt excretion into the gallbladder. There is persistent prominent activity in the common duct throughout the exam, this does not clear on the final images, findings suggest a partial common duct obstruction. IMPRESSION: 1. Findings consistent with a partial common duct obstruction. 2. No evidence of cystic duct obstruction.
--- NOTE | 2024-03-01 09:00 | NUR ---
EDUCATION PATIENT EDUCATED NOT TO GET UP THE BED WITHOUT NOTIFYING FOR ASSISTANCE. EDUCATED ON RISKS FOR FALL AND COMPLICATIONS AFTER IF FALLING. PATIENT AND DAUGHTER AT BEDSIDE, BOTH VOICED UNDERSTANDING. BED ALARM IN PLACE, BEDSIDE COMMODE NEXT TO BED. WILL CONTINUE TO MONITOR.
--- NOTE | 2024-03-01 10:20 | CONS ---
[facility] CARDIOLOGY CONSULTATION NOTE Date Patient Seen: Mar 01, 2024 Time of Visit: 10:18 History of Present Illness: Patient is a 73-year-old female with past medical history of paroxysmal atrial fibrillation, Parkinson's disease, sick sinus syndrome, orthostatic hypotension, supraventricular tachycardia, hypertension, permanent pacemaker implantation ([employer] Remi). 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 She [place] [facility] [place] with complaints of abdominal distention, belching, flatulance, and abdominal pain. She reports symptoms have been present for months, worsening over the past few weeks. Gallbladder ultrasound positive for gallstones. HIDA scan positive for partial common duct obstruction. Cardiology consultation requested for preoperative cardiovascular risk assessment prior to undergoing lap cholecystectomy. Past Medical History: paroxysmal atrial fibrillation, Parkinson's disease, sick sinus syndrome, orthostatic hypotension, supraventricular tachycardia, hypertension, permanent pacemaker implantation ([employer]i) Most recent interrogation of PPM from 06/24/2023 showing remain longevity 3 year 1 mo estimated, <1% A paced, infrequent mode switches for AFib/AFL however normal functioning. Lexiscan stress test 09/2021 normal LV perfusion. Most recent echocardiogram from 06/2021 showing LVEF 65%, asymmetric septal hypertrophy at the base without ARMANI, indeterminate diastolic function, mild mitral regurgitation and trace aortic regurgitation. Past Surgical History: [employer] Remi Pacemaker implantation Bladder surgery Family History: cancer, heart disease Social History: nonsmoker Current Meds: Current Medications Medications Dose Ordered Sig/Sridevi Start Time Stop Time Status Last Admin Ceftriaxone Sodium 1 gm Q24H 02/28/24 02:30 03/09/24 02:29 03/01/24 02:56 Polyethylene Glycol 17 gm DAILY 02/28/24 09:00 03/29/24 08:59 03/01/24 09:08 Acetaminophen 650 mg Q6H PRN 02/28/24 02:30 03/29/24 02:29 02/29/24 21:12 Ondansetron HCl 4 mg Q6H PRN 02/28/24 02:30 03/29/24 02:29 Enoxaparin Sodium 30 mg DAILY 02/28/24 09:00 03/29/24 08:59 03/01/24 09:09 Carbidopa/Levodopa 2 each QID 02/28/24 13:00 03/29/24 12:59 03/01/24 09:10 Levothyroxine Sodium 100 mcg SYN 02/29/24 06:30 03/30/24 06:29 03/01/24 05:50 Home Med Rotigotine (Neupro) 2MG/2... DAILY 02/29/24 09:00 03/30/24 08:59 03/01/24 09:17 Citalopram Hydrobromide 20 mg DAILY 02/29/24 09:00 03/30/24 08:59 03/01/24 09:10 Digoxin 125 mcg DAILY 02/29/24 09:00 03/30/24 08:59 03/01/24 09:10 Famotidine 20 mg HS 02/28/24 21:00 03/29/24 20:59 02/29/24 21:08 Metoprolol Succinate 50 mg BID 02/28/24 21:00 03/29/24 20:59 02/29/24 08:33 Montelukast Sodium 10 mg DAILY 02/29/24 09:00 03/30/24 08:59 03/01/24 09:10 Alprazolam 0.5 mg BID PRN 02/29/24 12:00 03/30/24 11:59 03/01/24 05:50 Melatonin 5 mg HS 03/01/24 21:00 03/31/24 20:59 Review of Systems: Complains of abdominal pain, belching and flatulence. Complains of reflux burning pain. Denies nausea or vomiting. No shortness of breath. Reports tremors with underlying diagnosis of Parkinson, consistent with her history. No bleeding or bruising. Physical Examination: GENERAL: [No acute distress. Thin elderly female. HEAD: [Normal with no signs of head trauma.] EYES: [PERRLA, EOMI, conjunctiva and sclera normal.] NECK: [Normal carotid upstrokes without bruits.] LUNGS: [Clear breath sounds bilaterally. No wheezes, or rhonchi.] HEART: [Normal rate and rhythm. Normal S1 and S2 without murmurs, gallop or rub.] VASC: [Peripheral pulses +2 bilaterally.] EXT: [No clubbing, cyanosis or edema.] SKIN: [No rashes or lesions noted.] NEURO: [Awake, alert, and oriented x3. No focal sensory or strength deficits noted.] Vital Signs (last 8hr) Date Time Temp Pulse Resp B/P (MAP) Pulse Ox O2 Delivery O2 Flow Rate FiO2 03/01/24 09:10 77 03/01/24 08:00 98.1 77 17 107/58 96 Room Air 03/01/24 04:10 97.9 76 17 137/63 96 Room Air 21 Laboratory: [ ] Hematology Labs: Test 03/01/24 04:44 02/29/24 04:11 Range/Units White Blood Count 6.7 4.8-10.8 K/uL Red Blood Count 4.13 4.00-5.50 MIL/uL Hemoglobin 12.7 12.0-16.0 g/dL Hematocrit 38.6 36-48 % Mean Corpuscular Volume 93.5 79-99 fL Mean Corpuscular Hemoglobin 30.8 27.0-33.0 pg Mean Corpuscular Hemoglobin Concent 32.9 32.0-36.0 g/dL Red Cell Distribution Width 12.0 11.0-15.5 % Platelet Count 245 130-400 K/uL Mean Platelet Volume 10.3 7.5-10.5 fL Nucleated Red Blood Cells 0.0 0.0-0.19 % Immature Granulocyte % (Auto) 0.5 0-1 % Neutrophils (%) (Auto) 65.2 40.0-77.0 % Lymphocytes (%) (Auto) 21.8 21.0-51.0 % Monocytes (%) (Auto) 11.6 3.0-13.0 % Eosinophils (%) (Auto) 0.6 0.0-8.0 % Basophils (%) (Auto) 0.3 0.0-5.0 % Neutrophils # (Auto) 4.1 1.8-7.7 K/uL Lymphocytes # (Auto) 1.4 1.0-4.8 K/uL Monocytes # (Auto) 0.7 0.1-1.0 K/uL Eosinophils # (Auto) 0.04 0.00-0.70 K/uL Basophils # (Auto) 0.02 0.00-0.20 K/uL Absolute Immature Granulocyte (auto 0.03 0-1 K/uL Chemistry Labs: Test 03/01/24 04:44 02/28/24 20:46 Range/Units Sodium Level 142 136-145 mmol/L Potassium Level 3.8 3.5-5.1 mmol/L Chloride Level 107 101-111 mmol/L Carbon Dioxide Level 25 21-32 mmol/L Blood Urea Nitrogen 18 7-18 mg/dL Creatinine 0.6 0.5-1.0 mg/dL Glomerular Filtration Rate Calc 95 >90 mL/min Random Glucose 80 70-105 mg/dL Total Calcium 8.7 8.5-10.1 mg/dL Magnesium Level 2.00 1.80-2.40 mg/dL Total Bilirubin 0.4 0.2-1.0 mg/dL Aspartate Amino Transf (AST/SGOT) 13 10-37 U/L Alanine Aminotransferase (ALT/SGPT) < 6 L 12-78 U/L Alkaline Phosphatase 69 50-136 U/L Total Protein 6.3 6.0-8.3 g/dL Albumin 3.4 L 3.5-5.0 g/dL Whole Blood Glucose 86 70-110 MG/DL Assessment: Preoperative cardiac risk assessment Gallstones SSS s/p PPM ([employer] Remi) paroxsymal AFib Orthostatic hypotension hx SVT HTN Impression: Patient's last dose of DOAC Eliquis was 02/28/2024 in the evening. After 4 half -life of medications (48 hours), bleeding risk expected to be minimal secondary to DOAC. No contraindication from cardiac standpoint for patient to proceed as low cardiac risk for undergoing lap cholecystectomy. She has an underlying permanent pacemaker displaying normal functioning and adequate battery life as of June 2023. In addition, she has a prior cardiac stress test and echocardiogram which were both relatively benign in 2021. She is not displaying any signs or symptoms of underlying primary cardiac etiology. No additional testing from a cardiac standpoint planned during this hospitalization. Cardiology to sign off at this time, however please reconsult if any questions arise during the hospitalization. BALBINA JANE DO Mar 01, 2024 10:20
--- NOTE | 2024-03-01 11:06 | PN ---
INFECTIOUS DISEASE PROGRESS NOTE Date of Service: Mar 01, 2024 SUBJECTIVE: This 73-year-old female patient was seen and examined bedside in room 408. Patient is awake, alert and oriented x3. Patient had a HIDA scan done yesterday with findings consistent with a partial common duct obstruction. Patient has been evaluated by General surgery and per report patient will possibly undergo lap tashi on . Eliquis has been placed on hold and pending cardiac clearance. No reports of fever, temperature is 98.1 and a WBC of 6.7. No growth reported on the urine cultures. Patient continues on ceftriaxone IV every24 hours. Will continue to monitor patient. PHYSICAL EXAM EYES: Anicteric. Pupils equal and reactive. HENT: No oral thrush seen, moist Oral mucosa NECK: Supple, no JVD or thyromegaly. LUNGS: Good air entry. No rales, no rhonchi. CARDIOVASCULAR: S1, S2 regular. No murmur heard. ABDOMEN: Soft, non tender, bowel sounds present, no organomegaly CENTRAL NERVOUS SYSTEM: Awake, alert, oriented x 3. No focal deficits. SKIN: No rashes, no swelling. LYMPHATICS: No peripheral lymphadenopathy MUSCULOSKELETAL: No joint swelling, erythema or tenderness. EXTREMITIES: No cyanosis or clubbing BACK: No deformity, no pressure ulcer. GENITOURINARY: No dysuria or hematuria Vital Sign (Last 12 Hours) 02/29/24 03/01/24 03/01/24 03/01/24 23:41 04:10 08:00 09:10 Temp 97.7 97.9 98.1 Pulse 71 76 77 77 Resp 17 17 17 B/P (MAP) 129/54 137/63 107/58 Pulse Ox 98 96 96 O2 Delivery Room Air Room Air Room Air FiO2 21 21 Intake & Output (last 24hrs) 02/29/24 02/29/24 03/01/24 15:00 23:00 07:00 Intake Total 0 ml Balance 0 ml LABS: Laboratory: Test 03/01/24 04:44 02/29/24 04:11 02/28/24 20:46 Range/Units White Blood Count 6.7 4.8-10.8 K/uL Red Blood Count 4.13 4.00-5.50 MIL/uL Hemoglobin 12.7 12.0-16.0 g/dL Hematocrit 38.6 36-48 % Mean Corpuscular Volume 93.5 79-99 fL Mean Corpuscular Hemoglobin 30.8 27.0-33.0 pg Mean Corpuscular Hemoglobin Concent 32.9 32.0-36.0 g/dL Red Cell Distribution Width 12.0 11.0-15.5 % Platelet Count 245 130-400 K/uL Mean Platelet Volume 10.3 7.5-10.5 fL Nucleated Red Blood Cells 0.0 0.0-0.19 % Sodium Level 142 136-145 mmol/L Potassium Level 3.8 3.5-5.1 mmol/L Chloride Level 107 101-111 mmol/L Carbon Dioxide Level 25 21-32 mmol/L Blood Urea Nitrogen 18 7-18 mg/dL Creatinine 0.6 0.5-1.0 mg/dL Glomerular Filtration Rate Calc 95 >90 mL/min Random Glucose 80 70-105 mg/dL Total Calcium 8.7 8.5-10.1 mg/dL Magnesium Level 2.00 1.80-2.40 mg/dL Total Bilirubin 0.4 0.2-1.0 mg/dL Aspartate Amino Transf (AST/SGOT) 13 10-37 U/L Alanine Aminotransferase (ALT/SGPT) < 6 L 12-78 U/L Alkaline Phosphatase 69 50-136 U/L Total Protein 6.3 6.0-8.3 g/dL Albumin 3.4 L 3.5-5.0 g/dL Immature Granulocyte % (Auto) 0.5 0-1 % Neutrophils (%) (Auto) 65.2 40.0-77.0 % Lymphocytes (%) (Auto) 21.8 21.0-51.0 % Monocytes (%) (Auto) 11.6 3.0-13.0 % Eosinophils (%) (Auto) 0.6 0.0-8.0 % Basophils (%) (Auto) 0.3 0.0-5.0 % Neutrophils # (Auto) 4.1 1.8-7.7 K/uL Lymphocytes # (Auto) 1.4 1.0-4.8 K/uL Monocytes # (Auto) 0.7 0.1-1.0 K/uL Eosinophils # (Auto) 0.04 0.00-0.70 K/uL Basophils # (Auto) 0.02 0.00-0.20 K/uL Absolute Immature Granulocyte (auto 0.03 0-1 K/uL Whole Blood Glucose 86 70-110 MG/DL ASSESSMENT: Cholecystitis with positive HIDA scan. Urinary tract infection. Atrial fibrillation. Hypertension. PLAN: Pending cardiac clearance for laparoscopic cholecystectomy. Continue ceftriaxone. Continue GI prophylaxis. We will follow up on the cultures General surgery has evaluated patient. We will monitor electrolytes. This case was reviewed and discussed with my supervising physician and the above assessment and plan was formulated and agreed upon. ATTESTATION BY PHYSICIAN I have seen and examined the patient. I reviewed the documentation, medical decision making, and treatment plan as noted by the mid-level provider above. I agree with the findings and plan of care. JIMENA KIDD MD, MIRTA L [facility] Mar 01, 2024 11:06
--- NOTE | 2024-03-01 17:00 | NUR ---
ROUNDS. ROUNDED WITH DR. PARADA FOR CARDIAC CLEARANCE. NO NEW ORDERS GIVEN. PER DR. PARADA, NO CONTRAINDICATION FROM CARDIAC STANDPOINT TO PROCEED WITH lap cholecystectomy. PATIENT VOICED UNDERSTANDING. NO FAMILY AT BEDSIDE AT THIS TIME. DENIES ANY COMPLAINTS. WILL CONTINUE TO MONITOR.
[2024-03-01] MEDS: MELATONIN 5 MG TABLET PO SCH (20:36)
--- NOTE | 2024-03-01 20:58 | NUR ---
REPORTED FALL 1720 TELE CALLED REGARDING PATIENT'S TELE BEING OFF LEADS. WHEN NURSE ROUNDED TO PLACE TELE PACK BACK, PATIENT REPORTS HAVING FALL IN RESTROOM, WALKING BACK TO BED. FALL WAS UNWITNESSED. PATIENT OBSERVED LYING IN BED WITH BED ALARM ACTIVATED. PATIENT AAOX3 HOWEVER FORGETFUL AT TIMES. BEDSIDE COMMODE NEXT TO BED. NO S/S OF DISTRESS NOTED. PATIENT DENIES HAVING HEAD INJURY OR HURTING HERSELF DURING POTENTIAL FALL. C/O MINOR PAIN TO RIGHT HAND, STATING SHE USED TO BREAK FALL. NO INJURY NOTED UPON ASSESSMENT. PATIENT HAS TREMBLES AND SHAKING TO RIGHT SIDE DUE TO HX OF PARKINSON'S. WHEN ASKED WHY SHE AMBULATED TO RESTROOM IF BEDSIDE COMMODE WAS PLACED TO PREVENT PATIENT FROM AMBULATING LONG DISTANCES. PATIENT STATED WANTED TO BRUSH HER TEETH. PATIENT HAD BEEN EDUCATED BY NURSE AND DAUGHTER AT BEDSIDE TO CONTACT PERSONNEL FOR ASSISTANCE IF NEEDING TO AMBULATE, PATIENT AND DAUGHTER VOICED UNDERSTANDING. FALL REPORTED TO CHARGE NURSE, PROVIDER AND BICYCLE SERVICE TECHNICIAN. TORB FROM DR. KIDD FOR HAND XRAY TO R/O FRACTURE. ORDER PLACED AND CARRIED OUT. NO FURTHER ORDERS GIVEN. RE-EDUCATED PATIENT TO CALL FOR ASSISTANCE AND NOT ATTEMPT TO GET UP BY HERSELF TO PREVENT ANY FURTHER FALLS OR INJURIES. PATIENT VOICED UNDERSTANDING, HOWEVER IS FORGETFUL. BEDSIDE COMMODE NEXT TO BED. BED ALARM ACTIVATED. CALL SHEN WITHIN REACH ALONG WITH PERSONAL BELONGINGS. FAMILY NOTIFIED TO NUMBER ON FILE, HOWEVER NO ANSWER, LEFT FOR CALLBACK. PENDING CALLBACK.
[2024-03-02] VITALS (7 sets, daily range): BP systolic 111–128; BP diastolic 59–67; PULSE 64–80; RESP 16–18; TEMP 98–98.6; O2SAT 98
--- NOTE | 2024-03-02 06:41 | NUR ---
DR GAXIOLA ROUNDING LET PATIENT KNOW SHE WOULD BE HAVING A LAP DEBBIE TOMORROW
--- NOTE | 2024-03-02 09:17 | HMCIMG ---
HAND 2+VWS RT LIMITED REASON: FALL TECHNIQUE: 2 views were obtained. FINDINGS: There is no evidence of fracture or dislocation. There is no joint effusion. The soft tissues appear unremarkable. There is no evidence of a radiopaque foreign body. 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 IMPRESSION: No acute findings.
--- NOTE | 2024-03-02 10:04 | PN ---
INFECTIOUS DISEASE PROGRESS NOTE Date of Service: Mar 02, 2024 SUBJECTIVE: This 73-year-old female patient was seen and examined bedside in room 408. Patient is awake, alert and oriented x3. Per nursing report patient reported a fall last night and voicing pain to the right hand. An x-ray was obtained and showed moderate osteoarthritis in the 2nd through the 5th D IP joints but no fractures. Patient was instructed to ask for assistance when getting out of bed due to has Parkinson's tremors and she is high-risk for falls. Patient has been evaluated by Cardiology and has been cleared with a low cardiac risk for lap cholecystectomy procedure. Eliquis continues on hold. Continues on ceftriaxone IV for UTI. No growth reported yet on the urine cultures. Will continue to monitor patient. PHYSICAL EXAM EYES: Anicteric. Pupils equal and reactive. HENT: No oral thrush seen, moist Oral mucosa. NECK: Supple, no JVD or thyromegaly. LUNGS: Good air entry. No rales, no rhonchi. CARDIOVASCULAR: S1, S2 regular. No murmur heard. ABDOMEN: Soft, non tender, bowel sounds present, no organomegaly. CENTRAL NERVOUS SYSTEM: Awake, alert, oriented x 3. SKIN: No rashes, no swelling. LYMPHATICS: No peripheral lymphadenopathy. MUSCULOSKELETAL: No joint swelling, erythema or tenderness. EXTREMITIES: No cyanosis or clubbing. Parkinson's tremors. BACK: No deformity, no pressure ulcer. GENITOURINARY: No dysuria or hematuria. Vital Sign (Last 12 Hours) 03/01/24 03/02/24 03/02/24 03/02/24 23:30 04:50 07:48 08:30 Temp 98.1 98.1 98.2 Pulse 66 64 78 78 Resp 18 18 18 B/P (MAP) 120/59 123/59 126/67 Pulse Ox 98 99 98 O2 Delivery Room Air Room Air Room Air FiO2 21 21 03/02/24 09:30 Pulse 78 Intake & Output (last 24hrs) 03/01/24 03/01/24 03/02/24 15:00 23:00 07:00 Intake Total 720 ml Balance 720 ml LABS: Laboratory: Test 03/01/24 19:40 03/01/24 04:44 Range/Units Whole Blood Glucose 111 H 70-110 MG/DL White Blood Count 6.7 4.8-10.8 K/uL Red Blood Count 4.13 4.00-5.50 MIL/uL Hemoglobin 12.7 12.0-16.0 g/dL Hematocrit 38.6 36-48 % Mean Corpuscular Volume 93.5 79-99 fL Mean Corpuscular Hemoglobin 30.8 27.0-33.0 pg Mean Corpuscular Hemoglobin Concent 32.9 32.0-36.0 g/dL Red Cell Distribution Width 12.0 11.0-15.5 % Platelet Count 245 130-400 K/uL Mean Platelet Volume 10.3 7.5-10.5 fL Nucleated Red Blood Cells 0.0 0.0-0.19 % Sodium Level 142 136-145 mmol/L Potassium Level 3.8 3.5-5.1 mmol/L Chloride Level 107 101-111 mmol/L Carbon Dioxide Level 25 21-32 mmol/L Blood Urea Nitrogen 18 7-18 mg/dL Creatinine 0.6 0.5-1.0 mg/dL Glomerular Filtration Rate Calc 95 >90 mL/min Random Glucose 80 70-105 mg/dL Total Calcium 8.7 8.5-10.1 mg/dL Magnesium Level 2.00 1.80-2.40 mg/dL Total Bilirubin 0.4 0.2-1.0 mg/dL Aspartate Amino Transf (AST/SGOT) 13 10-37 U/L Alanine Aminotransferase (ALT/SGPT) < 6 L 12-78 U/L Alkaline Phosphatase 69 50-136 U/L Total Protein 6.3 6.0-8.3 g/dL Albumin 3.4 L 3.5-5.0 g/dL ASSESSMENT: Cholecystitis with positive HIDA scan. Urinary tract infection. Status post mechanical fall. Parkinson's disease. Atrial fibrillation. Hypertension. PLAN: Continue ceftriaxone. Continue GI prophylaxis. We will follow up on the cultures General surgery has evaluated patient. Cardiology has evaluated patient and has cleared with a low cardiac risk for laparoscopic cholecystectomy. Fall precautions. We will monitor electrolytes. This case was reviewed and discussed with my supervising physician and the above assessment and plan was formulated and agreed upon. ATTESTATION BY PHYSICIAN I have seen and examined the patient. I reviewed the documentation, medical decision making, and treatment plan as noted by the mid-level provider above. I agree with the findings and plan of care. JIMENA KIDD MD, MIRTA L [facility] Mar 02, 2024 10:04
--- NOTE | 2024-03-02 13:35 | NUR ---
FALL PREVENTION/EDUCATION PATIENT EDUCATED NOT TO GET UP THE BED WITHOUT NOTIFYING FOR ASSISTANCE. EDUCATED ON RISKS FOR FALL AND COMPLICATIONS AFTER IF FALLING. PATIENT VOICED UNDERSTANDING. BED ALARM IN PLACE, BEDSIDE COMMODE NEXT TO BED, CALL SHEN WITHIN REACH, PERSONAL BELONGINGS WITHIN REACH. WILL CONTINUE TO MONITOR.
--- NOTE | 2024-03-02 15:59 | NUR ---
ANXIETY PATIENT C/O FEELING VERY ANXIOUS. STATES WHEN PARKINSON'S SYMPTOMS FLARE UP, ANXIETY KICKS IN. XANAX 0.5MG BID PRN AVAILABLE. ADMINISTERED ORDERED. WILL CONTINUE TO MONITOR.
--- NOTE | 2024-03-02 21:31 | NUR ---
PATIENT HAS 2 YOUNG VISITORS IN ROOM. INFORMED THEM THAT ONLY 1 VISITOR CAN STAY OVERNIGHT AND NEEDS TO BE 18YRS OR OVER. BOTH SAID ARE NOT 18. ONE SAID SHE IS 16YRS OLD. PATIENT SAID WILL CALL TO HAVE THEM PICKED UP. INFORMED CHARGE NURSE DESTINI Godfrey RN.
[2024-03-03] VITALS (25 sets, daily range): BP systolic 111–153; BP diastolic 43–75; PULSE 50–79; RESP 16–28; TEMP 97.6–98.3; O2SAT 91–98
[2024-03-03 04:04] LABS: BASOPHILS # (AUTO) 0.02 K/uL (0.00-0.20); BASOPHILS % (AUTO) 0.3 % (0.0-5.0); EOSINOPHILS # (AUTO) 0.11 K/uL (0.00-0.70); EOSINOPHILS % (AUTO) 1.7 % (0.0-8.0); HEMATOCRIT 38.1 % (36-48); IMMATURE GRANULOCYTE ABSOLUTE 0.03 K/uL (0-1); LYMPHOCYTES # (AUTO) 1.1 K/uL (1.0-4.8); LYMPHOCYTES % (AUTO) 17.3 % (21.0-51.0); MEAN CORPUSCULAR HEMOGLOBIN 30.7 pg (27.0-33.0); MEAN CORPUSCULAR HGB CONC 33.3 g/dL (32.0-36.0); MONOCYTES # (AUTO) 0.8 K/uL (0.1-1.0); MONOCYTES % (AUTO) 12.1 % (3.0-13.0); NEUTROPHILS # (AUTO) 4.3 K/uL (1.8-7.7); NEUTROPHILS % (AUTO) 68.1 % (40.0-77.0); PLATELET COUNT (AUTO) 231 K/uL (130-400); RED BLOOD CELL COUNT(AUTO) 4.14 MIL/uL (4.00-5.50); RED CELL DISTRIBUTION WIDTH 11.9 % (11.0-15.5); WHITE BLOOD COUNT (AUTO) 6.3 K/uL (4.8-10.8)
[2024-03-03 04:28] LABS: ALBUMIN 3.2 g/dL (3.5-5.0); BILIRUBIN,TOTAL 0.3 mg/dL (0.2-1.0); CREATININE 0.6 mg/dL (0.5-1.0); MAGNESIUM 1.8 mg/dL (1.80-2.40); POTASSIUM 3.6 mmol/L (3.5-5.1); TOTAL PROTEIN, SERUM 6.4 g/dL (6.0-8.3)
--- NOTE | 2024-03-03 06:15 | NUR ---
SURGERY STAFF HERE TO TRANSPORT PATIENT TO SURGICAL HOLDING AREA
[2024-03-03] MEDS ORDERED: IOHEXOL-350 50ML VIAL IV ONE (06:52)
[2024-03-03] MEDS ORDERED: EPINEPHrine PF 1MG (1:1,000) 1 MG/ML AMP ONE (07:12)
[2024-03-03] MEDS ORDERED: BUPIvacaine/PF 0.5% 30ML VIAL ONE (07:12)
[2024-03-03] MEDS ORDERED: LIDOCAINE PF 100MG/5ML (2%) SYRINGE 5ML ONE ×2 (07:38→08:15)
[2024-03-03] MEDS ORDERED: proPOFol 10 MG/ML 20ML VIAL IV ONE (07:39)
[2024-03-03] MEDS ORDERED: FENTanyl CITRate PF 50 MCG/1 ML 2ML VIAL ONE (07:39)
[2024-03-03] MEDS ORDERED: rocuRONium bROMide 10MG/1ML 5ML VL ONE (07:39)
[2024-03-03] MEDS ORDERED: SUCCINYLCHOLINE CHLORIDE 20 MG/ML 10 ML VIAL ONE (08:15)
[2024-03-03] MEDS ORDERED: dexaMETHasone SOD PHOSPHATE 10MG/ML 1ML VIAL ONE (08:15)
[2024-03-03] MEDS ORDERED: ondanSETRON 4MG INJ ONE (08:30)
[2024-03-03] MEDS: BUPIvacaine/EPI/PF 0.5% 30ML VIAL IJ ONE ×2 (08:40→10:36)
[2024-03-03] MEDS ORDERED: GLYCOPYRROLATE 0.2 MG/ML 5 ML VIAL ONE (08:43)
[2024-03-03] MEDS ORDERED: ketOROlac 30MG VIAL (30MG/ML) ONE (08:56)
[2024-03-03] MEDS ORDERED: NEOSTIGMINE METHYLSULFATE 1MG/ML IV ONE (08:56)
--- NOTE | 2024-03-03 09:14 | OP ---
Operative Note: DATE OF PROCEDURE: 03/03/24 SURGEON: PRIYANK GAXIOLA MD RECEIVING TANK OPERATOR: [KELL Fernández] ANESTHESIA: [General endotracheal anesthesia] ANESTHESIOLOGIST/ADMINISTRATIVE VOLUNTEER: [[facility] anesthesia team] PREOPERATIVE DIAGNOSIS: [Gallstones] POSTOPERATIVE DIAGNOSIS: [Same] SYNOPSIS: [Gallstones causing patient discomfort Laparoscopic cholecystectomy with intraoperative cholangiogram #1 critical view obtained, #2 intraoperative cholangiogram with good flow of contrast from cystic duct into common bile duct, right and left hepatic duct, and duodenum noted All sponges and instruments were accounted for at the end the case Patient tolerated the procedure well, there no complications] PROCEDURE: [Laparoscopic cholecystectomy with intraoperative cholangiogram] ESTIMATED BLOOD LOSS: [Less than 10 cc] INDICATIONS: [Gallstones causing patient discomfort] DESCRIPTION OF PROCEDURE: [On day of surgery patient was brought to the operating room. Positioned in the supine position. Preoperative antibiotics were given. Bilateral SCDs were placed. The patient was intubated. Patient then was prepped and draped in the usual fashion. Then a skin incision was made in the right upper quadrant. 5 mm trochars inserted under direct vision. Abdomen was insufflated to 15 mmHg. No injury to omentum or bowel is noted. A 5 mm port was placed in the umbilicus. A 12 mm port was placed in the subxiphoid position. A 5 mm port was placed in the right lateral abdomen. The gallbladder was grasped, elevated, the cystic duct and cystic artery was sequentially dissected. Critical view was obtained. An intraoperative cholangiogram was conducted by placing a clip at the distal end of the cystic duct. Ductotomy was made. A cholangiocatheter was introduced. Good flow of contrast from the cystic duct into common bile duct, right and left hepatic duct, and duodenum was noted. The Cholangiocath was removed. The cystic duct was sequentially clipped and transected. The cystic artery was then sequentially clipped and transected. The gallbladder then was dissected off the gallbladder fossa and removed an Endo Catch bag. Abdomen was irrigated. Appropriate hemostasis was noted. Then all insufflation gas was removed. Ports were removed. Local anesthetic was instilled into the incisions, and the incisions were closed with a subcuticular fashion. All sponges and instruments were accounted for at the end of the case. Patient tolerated the procedure well, there were no complications.] PRIYANK GAXIOLA MD Mar 03, 2024 09:14
--- NOTE | 2024-03-03 12:21 | PN ---
INFECTIOUS DISEASE PROGRESS NOTE Date of Service: Mar 03, 2024 SUBJECTIVE: This 73-year-old female patient was seen and examined bedside in room 408. Patient is awake, alert and oriented x3. Patient is status post laparoscopic cholecystectomy today. Patient is reporting feeling bloated. We will start patient on simethicone 80 mg p.o. PC and HS. No fever, temperature is 97.5 and WBC 6.3. No pain reported secondary to the fall. Continues on ceftriaxone IV for UTI. No growth reported yet on the urine cultures. Will continue to monitor patient. PHYSICAL EXAM EYES: Anicteric. Pupils equal and reactive. HENT: No oral thrush seen, moist Oral mucosa. NECK: Supple, no JVD or thyromegaly. LUNGS: Good air entry. No rales, no rhonchi. CARDIOVASCULAR: S1, S2 regular. No murmur heard. ABDOMEN: Soft, non tender, bowel sounds present, no organomegaly. CENTRAL NERVOUS SYSTEM: Awake, alert, oriented x 3. SKIN: No rashes, no swelling. LYMPHATICS: No peripheral lymphadenopathy. MUSCULOSKELETAL: No joint swelling, erythema or tenderness. EXTREMITIES: No cyanosis or clubbing. Parkinson's tremors. BACK: No deformity, no pressure ulcer. GENITOURINARY: No dysuria or hematuria. Vital Sign (Last 12 Hours) 03/03/24 03/03/24 03/03/24 03/03/24 04:00 09:15 09:20 09:25 Temp 97.9 97.5 Pulse 77 52 51 51 Resp 16 22 21 21 B/P (MAP) 133/68 149/60 147/59 152/54 Pulse Ox 96 100 100 100 O2 Delivery Room Air Nonrebreathing Mask Nonrebreathing Mask Nonrebreathing Mask O2 Flow Rate 10.0 10.0 10.0 03/03/24 03/03/24 03/03/24 03/03/24 09:30 09:35 09:40 09:45 Pulse 50 52 54 50 Resp 25 28 20 20 B/P (MAP) 153/60 153/56 150/56 125/64 Pulse Ox 100 100 99 95 O2 Delivery Nonrebreathing Mask Nonrebreathing Mask Nasal Cannula Nasal Cannula O2 Flow Rate 10.0 10.0 2.0 2.0 03/03/24 03/03/24 03/03/24 03/03/24 09:50 09:55 10:00 10:15 Pulse 51 51 51 Resp 20 17 17 B/P (MAP) 142/61 151/75 128/68 Pulse Ox 100 100 100 98 O2 Delivery Nasal Cannula Nasal Cannula Nasal Cannula Room Air* O2 Flow Rate 2.0 2.0 2.0 0 FiO2 21 Intake & Output (last 24hrs) 03/02/24 03/02/24 03/03/24 15:00 23:00 07:00 Intake Total 1175 ml Balance 1175 ml LABS: Laboratory: Test 03/03/24 03:00 03/01/24 19:40 Range/Units White Blood Count 6.3 4.8-10.8 K/uL Red Blood Count 4.14 4.00-5.50 MIL/uL Hemoglobin 12.7 12.0-16.0 g/dL Hematocrit 38.1 36-48 % Mean Corpuscular Volume 92.0 79-99 fL Mean Corpuscular Hemoglobin 30.7 27.0-33.0 pg Mean Corpuscular Hemoglobin Concent 33.3 32.0-36.0 g/dL Red Cell Distribution Width 11.9 11.0-15.5 % Platelet Count 231 130-400 K/uL Mean Platelet Volume 10.3 7.5-10.5 fL Immature Granulocyte % (Auto) 0.5 0-1 % Neutrophils (%) (Auto) 68.1 40.0-77.0 % Lymphocytes (%) (Auto) 17.3 L 21.0-51.0 % Monocytes (%) (Auto) 12.1 3.0-13.0 % Eosinophils (%) (Auto) 1.7 0.0-8.0 % Basophils (%) (Auto) 0.3 0.0-5.0 % Neutrophils # (Auto) 4.3 1.8-7.7 K/uL Lymphocytes # (Auto) 1.1 1.0-4.8 K/uL Monocytes # (Auto) 0.8 0.1-1.0 K/uL Eosinophils # (Auto) 0.11 0.00-0.70 K/uL Basophils # (Auto) 0.02 0.00-0.20 K/uL Absolute Immature Granulocyte (auto 0.03 0-1 K/uL Nucleated Red Blood Cells 0.0 0.0-0.19 % Sodium Level 143 136-145 mmol/L Potassium Level 3.6 3.5-5.1 mmol/L Chloride Level 106 101-111 mmol/L Carbon Dioxide Level 30 21-32 mmol/L Blood Urea Nitrogen 12 7-18 mg/dL Creatinine 0.6 0.5-1.0 mg/dL Glomerular Filtration Rate Calc 95 >90 mL/min Random Glucose 103 70-105 mg/dL Total Calcium 8.7 8.5-10.1 mg/dL Magnesium Level 1.80 1.80-2.40 mg/dL Total Bilirubin 0.3 0.2-1.0 mg/dL Aspartate Amino Transf (AST/SGOT) 13 10-37 U/L Alanine Aminotransferase (ALT/SGPT) 6 L 12-78 U/L Alkaline Phosphatase 70 50-136 U/L Total Protein 6.4 6.0-8.3 g/dL Albumin 3.2 L 3.5-5.0 g/dL Whole Blood Glucose 111 H 70-110 MG/DL ASSESSMENT: Cholecystitis status post laparoscopic cholecystectomy. Urinary tract infection. Status post mechanical fall. Parkinson's disease. Atrial fibrillation. Hypertension. PLAN: Continue ceftriaxone. Continue GI prophylaxis. Tramadol 50 mg p.o. every 8 hours for moderate pain. Continue with morphine for severe pain. We will follow up on the cultures. Advanced diet as recommended by surgeon. Fall precautions. We will monitor electrolytes. This case was reviewed and discussed with my supervising physician and the above assessment and plan was formulated and agreed upon. ATTESTATION BY PHYSICIAN I have seen and examined the patient. I reviewed the documentation, medical decision making, and treatment plan as noted by the mid-level provider above. I agree with the findings and plan of care. JIMENA KIDD MD, [facility] Mar 03, 2024 12:21
[2024-03-03] MEDS: BENZOCAINE/MENTH/CETYLPYRD CL 1 EACH LOZENGE MM PRN (13:01)
[2024-03-03] MEDS: SIMETHICONE 80 MG TAB.CHEW PO SCH (13:01)
--- NOTE | 2024-03-03 13:40 | HMCIMG ---
CHOLANGIO &/OR PANCRE INTRAOPE REASON: LAP DEBBIE W/IOC'S COMPARISON: None TECHNIQUE: 4 surgical spot views obtained documenting intraoperative cholangiogram. Fluoroscopy time was 0.09 seconds. IMPRESSION: 1. Documentation of intraoperative cholangiogram procedure.
[2024-03-03] MEDS: traMADol HCL 50 MG TABLET PO PRN (16:05)
[2024-03-04] VITALS (7 sets, daily range): BP systolic 103–150; BP diastolic 43–89; PULSE 62–72; RESP 16–19; TEMP 97.2–99.5; O2SAT 94–95
[2024-03-04 03:29] LABS: BASOPHILS # (AUTO) 0.02 K/uL (0.00-0.20); BASOPHILS % (AUTO) 0.3 % (0.0-5.0); EOSINOPHILS # (AUTO) 0.13 K/uL (0.00-0.70); EOSINOPHILS % (AUTO) 1.7 % (0.0-8.0); HEMATOCRIT 37.2 % (36-48); IMMATURE GRANULOCYTE ABSOLUTE 0.02 K/uL (0-1); LYMPHOCYTES # (AUTO) 1.4 K/uL (1.0-4.8); LYMPHOCYTES % (AUTO) 18.3 % (21.0-51.0); MEAN CORPUSCULAR HEMOGLOBIN 30.7 pg (27.0-33.0); MEAN CORPUSCULAR HGB CONC 32.8 g/dL (32.0-36.0); MEAN CORPUSCULAR VOLUME 93.5 fL (79-99); MONOCYTES # (AUTO) 0.7 K/uL (0.1-1.0); NEUTROPHILS # (AUTO) 5.4 K/uL (1.8-7.7); NEUTROPHILS % (AUTO) 70.4 % (40.0-77.0); PLATELET COUNT (AUTO) 212 K/uL (130-400); RED BLOOD CELL COUNT(AUTO) 3.98 MIL/uL (4.00-5.50); RED CELL DISTRIBUTION WIDTH 11.9 % (11.0-15.5); WHITE BLOOD COUNT (AUTO) 7.7 K/uL (4.8-10.8)
[2024-03-04 03:40] LABS: CREATININE 0.4 mg/dL (0.5-1.0); MAGNESIUM 1.7 mg/dL (1.80-2.40); POTASSIUM 3.5 mmol/L (3.5-5.1)
[2024-03-04] MEDS: morPHINE 2 MG SYG IVP PRN (03:52)
[2024-03-04] MEDS ORDERED: PoTASSium chl 10% ELIXIR 20MEQ 20 MEQ/15 ML UDCUP PO PRN (08:30)
[2024-03-04] MEDS ORDERED: PoTASSium chloRIDE 20MEQ/100ML 100 ML IV PRN (08:30)
[2024-03-04] MEDS: PoTASSium chloRIDE 20MEQ ER 20 MEQ ERTAB PO PRN (09:05)
[2024-03-04] MEDS: MAGNESIUM 2GM PREMIX 50ML 50 ML IV PRN (09:08)
[2024-03-04] MEDS: LACTULOSE 20 GM/30 ML UDCUP PO ONE (12:21)
[2024-03-04] MEDS: LACTULOSE 20 GM/30 ML UDCUP PO SCH (17:44)
--- NOTE | 2024-03-04 21:36 | NUR ---
BOWEL MOVEMENT Patient had 2 large soft, brown bowel movements.
[2024-03-05] VITALS: BP 135/59; PULSE 70; RESP 18; TEMP 97.9
--- NOTE | 2024-03-05 02:36 | PN ---
INFECTIOUS DISEASE FOLLOWUP NOTE DATE OF SERVICE: 03/04/2024 SUBJECTIVE: The patient is seen and examined at bedside today. The patient has no fever, no chills. No nausea or vomiting. No sore throat or rhinorrhea. The patient is tolerating orally. The patient yet to have bowel movement. No bleeding tendency. No rashes or itchiness. No depression. No suicidal ideation. PHYSICAL EXAMINATION: VITAL SIGNS: Temperature today 97.5. EYES: No icterus. Pupils equal and reactive. HENT: No oral thrush seen. Moist oral mucosa. NECK: Supple, no JVD or thyromegaly. LUNGS: Good air entry. No rales, no rhonchi. CARDIOVASCULAR: S1, S2 regular. No murmur heard. ABDOMEN: Full, soft, nontender. Bowel sounds present. CENTRAL NERVOUS SYSTEM: Awake, alert, oriented x 3. No focal deficits. SKIN: No rashes, no itchiness. LYMPHATIC: No peripheral lymphadenopathy. BACK: No deformity, no pressure ulcer. MUSCULOSKELETAL: No joint swelling, erythema or tenderness. ASSESSMENT: A 73-year-old man admitted with nausea, vomiting, and abdominal pain. CURRENT PROBLEMS: Include: * Acute cholecystitis, status post surgery. * Hypertension. * Parkinson disease. * Debility. PLAN: * Continue pain management. * Continue GI prophylaxis. * Continue antihypertensive. * Continue Solu-Medrol. * Monitor electrolytes. * The patient will be followed up closely. TID: [id number] RECEIPT: [id number]
[2024-03-05 04:00] VITALS: BP 123/52; PULSE 70; RESP 20; TEMP 97.9
[2024-03-05 08:00] VITALS: BP 138/62; PULSE 62; RESP 18; TEMP 98; O2SAT 95
[2024-03-05 08:17] VITALS: PULSE 62
[2024-03-05 09:17] VITALS: PULSE 70
--- NOTE | 2024-03-05 18:34 | DS ---
Discharge Summary Hospital Course This is a 73-year-old female with history of Parkinson's disease, hypertension, who presented to the hospital with chief complaint of abdominal pain, nausea and vomiting. Pain localized to the right side has some nausea and vomiting. The patient had a CT of the abdomen/pelvis done, which showed constipation and ga llstone with distended gallbladder. No dysuria, no frequency. No rashes or itchiness. Denies sick contact. A HIDA scan done on 02/29/2024 show findings consistent with a partial common duct obstruction. General surgeon was consulted, the Eliquis was put on hold and on 03/03/2024 patient underwent a laparoscopic cholecystectomy with intraoperative cholangiogram by Dr. Posada. Yesterday patient was constipated, was given stool softeners and had two bowel movements during the night. Patient will be discharged to home today. FINAL DISCHARGE DIAGNOSIS: Cholecystitis status post laparoscopic cholecystectomy. Urinary tract infection treated with ceftriaxone. Status post mechanical fall on 03/01/2024. Parkinson's disease. Atrial fibrillation. Hypertension. PLAN: Discharge patient to home today. Continue same home medications including Eliquis. Follow up with PCP in 3-5 days. Follow up with [facility] in 1-2 weeks. This case was reviewed and discussed with my supervising physician and the above assessment and plan was formulated and agreed upon. ATTESTATION BY PHYSICIAN I have seen and examined the patient. I reviewed the documentation, medical decision making, and treatment plan as noted by the mid-level provider above. I agree with the findings and plan of care. JIMENA KIDD MD, MIRTA L [employer] [facility] Mar 05, 2024 18:34
== END 2024-03-05 11:00 | disposition home or self-care (01) | DRG 418 ==
LOC: EDH 23:38 → EDHIP 02-28 02:25 → 4BH 02-28 03:06
PROVIDERS: ADMIT Internal Medicine Infectious Disease; ATTEND Internal Medicine Infectious Disease
PROC: BF101ZZ Fluoroscopy of Bile Ducts using Low Osmolar Contrast (ICD-10-PCS; 2024-03-03)
PROC: 0FT44ZZ Resection of Gallbladder, Percutaneous Endoscopic Approach (ICD-10-PCS; principal; 2024-03-03 08:55)
DX: K80.01 Calculus of gallbladder with acute cholecystitis with obstruction (principal); N39.0 Urinary tract infection, site not specified; E87.6 Hypokalemia; G20.A1 Parkinson's disease without dyskinesia, without mention of fluctuations; I11.9 Hypertensive heart disease without heart failure; I48.0 Paroxysmal atrial fibrillation; E87.8 Other disorders of electrolyte and fluid balance, not elsewhere classified; I25.10 Atherosclerotic heart disease of native coronary artery without angina pectoris; R53.81 Other malaise; K82.8 Other specified diseases of gallbladder; E03.9 Hypothyroidism, unspecified; I49.5 Sick sinus syndrome; I95.1 Orthostatic hypotension; Z90.710 Acquired absence of both cervix and uterus; Z79.01 Long term (current) use of anticoagulants; Z95.810 Presence of automatic (implantable) cardiac defibrillator; K59.00 Constipation, unspecified
CPT/HCPCS: 36415; 71045; 73120; 74177; 74300; 76705; 78226; 80048; 80053; 80076; 81001; 82948; 83690; 83735; 84484; 85025; 85027; 87086; 88304; 93005; 96374; 96375; A9537; C1758; G0378; J0171; J0330; J0696; J1100; J1650; J1885; J1956; J2003; J2270; J2405; J2704; J2710; J3010; J3475; J3490; J7030; Q9967; A4216; A4222; A4223; A4335; A4554; A4600; A4649; A4930; J0665

== ENCOUNTER 2024-03-20 17:48 | Emergency (ER) | payer OTHER, MEDICARE ==
[~2024-03-20] VITALS: Ht 167.6 cm; Wt 68.0 kg
[~2024-03-20 17:48] MED LIST: APIX5TAB PO; CARB1TAB35 PO; CITA-107 PO; DIGO125T71 PO; FAMO20TA8 PO; LEVO100T12 PO; METO-391 PO; MONT-39 PO; ROTI1PAT8 TD
[2024-03-20 18:23] LABS: BASOPHILS # (AUTO) 0.04 K/uL (0.00-0.20); BASOPHILS % (AUTO) 0.4 % (0.0-5.0); EOSINOPHILS # (AUTO) 0.05 K/uL (0.00-0.70); EOSINOPHILS % (AUTO) 0.5 % (0.0-8.0); HEMATOCRIT 39.2 % (36-48); IMMATURE GRANULOCYTE ABSOLUTE 0.05 K/uL (0-1); LYMPHOCYTES # (AUTO) 1.9 K/uL (1.0-4.8); LYMPHOCYTES % (AUTO) 17.9 % (21.0-51.0); MEAN CORPUSCULAR HEMOGLOBIN 31.3 pg (27.0-33.0); MEAN CORPUSCULAR HGB CONC 33.2 g/dL (32.0-36.0); MEAN CORPUSCULAR VOLUME 94.2 fL (79-99); MONOCYTES # (AUTO) 0.9 K/uL (0.1-1.0); MONOCYTES % (AUTO) 7.9 % (3.0-13.0); NEUTROPHILS # (AUTO) 7.8 K/uL (1.8-7.7); NEUTROPHILS % (AUTO) 72.8 % (40.0-77.0); PLATELET COUNT (AUTO) 256 K/uL (130-400); RED BLOOD CELL COUNT(AUTO) 4.16 MIL/uL (4.00-5.50); RED CELL DISTRIBUTION WIDTH 11.8 % (11.0-15.5); WHITE BLOOD COUNT (AUTO) 10.7 K/uL (4.8-10.8)
[2024-03-20 18:37] LABS: APPEARANCE,URINE CLEAR (CLEAR); BILIRUBIN,URINE NEGATIVE (NEGATIVE); COLOR,URINE COLORLESS (YELLOW); GLUCOSE, URINE (UA) NEGATIVE (NEGATIVE); KETONES,URINE NEGATIVE (NEGATIVE); LEUKOCYTE ESTERASE ,URINE 500 Leu/uL (NEGATIVE); NITRATE,URINE NEGATIVE (NEGATIVE); OCCULT BLOOD,URINE NEGATIVE (NEGATIVE); PROTEIN,URINE NEGATIVE (NEGATIVE); UROBILINOGEN,URINE 0.2 mg/dL (0.2-1.0)
[2024-03-20 18:39] LABS: ADD UA MICROSCOPIC YES
[2024-03-20 18:41] LABS: ALBUMIN 3.5 g/dL (3.5-5.0); BACTERIA,URINE RARE /HPF (None Seen); BILIRUBIN,DIRECT 0.1 mg/dL (0.0-0.3); BILIRUBIN,TOTAL 0.4 mg/dL (0.2-1.0); CREATININE 0.5 mg/dL (0.5-1.0); MAGNESIUM 1.9 mg/dL (1.80-2.40); POTASSIUM 4.1 mmol/L (3.5-5.1); SQUAMOUS EPITHELIAL CELL,UR FEW /HPF (0-2); TOTAL PROTEIN, SERUM 6.7 g/dL (6.0-8.3)
[2024-03-20 18:52] LABS: B-TYPE NATRIURETIC PEPTIDE 27 pg/mL (0-100)
[2024-03-20 19:56] VITALS: TEMP 97.9
--- NOTE | 2024-03-20 20:28 | HMCIMG ---
CHEST 1VW CLINICAL HISTORY: SOB COMPARISON: 02/28/2024 TECHNIQUE: Single view of the chest was obtained. FINDINGS: Lungs are clear. Cardiac size unremarkable. The bony structures and pacemaker are stable. IMPRESSION: No acute cardiopulmonary process identified.
[2024-03-20] MEDS: 0.9%NACL 1000ML 1,000 ML IV ONE (21:05)
[2024-03-20] MEDS: AZTREONAM 1 GM VIAL IVPB ONE (21:05)
[2024-03-20 21:25] VITALS: BP 129/61; PULSE 68; RESP 17; O2SAT 98
[2024-03-20] MEDS ORDERED: MACR100 PO (21:54)
--- NOTE | 2024-03-20 21:55 | ERN ---
General Chief Complaint: Weakness Stated Complaint: NO FEELING WELL Time Seen by MD: 17:57 Time Seen by Midlevel: 17:57 Source: patient History of Present Illness Initial Comments 73-year-old female who presents to the ED for evaluation of generalized weakness onset 2 weeks ago. Patient is reporting nausea, but denies any other associated symptoms at this time. Allergies: Coded Allergies: cefoxitin (Unverified Allergy, Unknown, 02/27/24) Home Meds Active Scripts Nitrofurantoin/Nitrofuran Mac (Macrobid) 100 Mg Cap, 1 CAP PO BID for 7 Days, #14 CAP 0 Refills Prov:BESSIE MCDERMOTT 03/20/24 Reported Medications Apixaban (Eliquis) 5 Mg Tablet, 5 MG PO BID, TAB 02/28/24 Metoprolol Succinate (Metoprolol Succinate) 50 Mg Tab.er.24h, 50 MG PO BID, TAB 02/28/24 Citalopram Hydrobromide (Citalopram HBr) 20 Mg Tablet, 20 MG PO DAILY, TAB 02/28/24 Montelukast Sodium (Montelukast Sodium) 10 Mg Tablet, 10 MG PO DAILY, TAB 02/28/24 Digoxin (Digoxin) 125 Mcg (0.125 Mg) Tablet, 125 MCG PO DAILY, TAB 02/28/24 Famotidine (Famotidine) 20 Mg Tablet, 20 MG PO HS, TAB 02/28/24 Carbidopa/Levodopa (Carbidopa-Levodopa 25-100 Tab) 25 Mg-100 Mg Tablet, 2 TAB PO QID 02/28/24 Rotigotine (Neupro) 2 Mg/24 Hour Patch.td24, 1 EACH TD DAILY 02/28/24 Levothyroxine Sodium (Levothyroxine Sodium) 100 Mcg Tablet, 100 MCG PO ACBKFST, TAB 02/28/24 Past Medical History Past Medical History: Heart Disease, Hypertension Medical History Other: PARKINSONS Past Surgical History: Cholecystectomy Female( History) History: Not Applicable ROS Dictation Constitutional: Negative for fever,chills, and weight loss Eyes: Negative for injury, pain,redness, and discharge ENT: Negative for injury,pain or swelling Cardiovascular: Negative for chest pain, palpitations, and edema Respiratory: Negative for shortness of breath, cough, and wheezing, Abdomen/GI: Positive for nausea, Negative for abdominal pain, vomiting, diarrhea, and constipation Back: Negative for injury and pain : Negative for injury, bleeding and discharge MS/Extremity: Negative for injury and deformity Skin: Negative for rash, and discoloration Neuro: Positive for weakness,Negative for headache, numbness, tingling, and seizure Psych: Negative for suicide ideation, homicidal ideation, and hallucinations Physical Exam Physical Exam Dictation General: awake, alert, NAD Head/Face: Normocephalic, atraumatic Eyes: PERRL, EOMI, vision at baseline ENT: oral cavity clear, TMs clear, no signs of infection Neck: Trachea midline, supple, no nuchal rigidity Cardiovascular: RRR, normal S1/S2, No MRGs, no JVD Respiratory: CTAB, no respiratory distress, No rales or wheezes Abdomen: Soft, non-tender, non-distended, normal bowel sounds, no guarding or rebound. Skin: Warm, dry, normal turgor, no rash MS/Extremity: Pulses equal, no cyanosis, neurovascular intact, FROM Neuro: COAx4, GCS 15, strength 5/5, CN 2-12 intact, normal cerebellar exam, normal gait, Psych: Normal behavior, mood, and affect normal Results Laboratory and Microbiology Lab and Micro Result Laboratory Tests Test 03/20/24 18:10 White Blood Count 10.7 K/uL (4.8-10.8) Red Blood Count 4.16 MIL/uL (4.00-5.50) Hemoglobin 13.0 g/dL (12.0-16.0) Hematocrit 39.2 % (36-48) Mean Corpuscular Volume 94.2 fL (79-99) Mean Corpuscular Hemoglobin 31.3 pg (27.0-33.0) Mean Corpuscular Hemoglobin Concent 33.2 g/dL (32.0-36.0) Red Cell Distribution Width 11.8 % (11.0-15.5) Platelet Count 256 K/uL (130-400) Mean Platelet Volume 10.0 fL (7.5-10.5) Immature Granulocyte % (Auto) 0.5 % (0-1) Neutrophils (%) (Auto) 72.8 % (40.0-77.0) Lymphocytes (%) (Auto) 17.9 % (21.0-51.0) L Monocytes (%) (Auto) 7.9 % (3.0-13.0) Eosinophils (%) (Auto) 0.5 % (0.0-8.0) Basophils (%) (Auto) 0.4 % (0.0-5.0) Neutrophils # (Auto) 7.8 K/uL (1.8-7.7) H Lymphocytes # (Auto) 1.9 K/uL (1.0-4.8) Monocytes # (Auto) 0.9 K/uL (0.1-1.0) Eosinophils # (Auto) 0.05 K/uL (0.00-0.70) Basophils # (Auto) 0.04 K/uL (0.00-0.20) Absolute Immature Granulocyte (auto 0.05 K/uL (0-1) Nucleated Red Blood Cells 0.0 % (0.0-0.19) Urine Color COLORLESS (YELLOW) Urine Appearance CLEAR (CLEAR) Urine pH 7.0 (5.0-8.0) Urine Specific [place] 1.003 (1.001-1.031) Urine Protein NEGATIVE mg/dL (NEGATIVE) Urine Glucose (UA) NEGATIVE mg/dL (NEGATIVE) Urine Ketones NEGATIVE mg/dL (NEGATIVE) Urine Occult Blood NEGATIVE (NEGATIVE) Urine Nitrate NEGATIVE (NEGATIVE) Urine Bilirubin NEGATIVE mg/dL (NEGATIVE) Urine Urobilinogen 0.2 mg/dL (0.2-1.0) Urine Leukocyte Esterase 500 Artie/uL (NEGATIVE) H Urine RBC 2-5 /HPF (0-1) H Urine WBC 11-25 /HPF (0-1) H Urine Squamous Epithelial Cells FEW /HPF (0-2) Urine Bacteria RARE /HPF (None Seen) Sodium Level 144 mmol/L (136-145) Potassium Level 4.1 mmol/L (3.5-5.1) Chloride Level 105 mmol/L (101-111) Carbon Dioxide Level 31 mmol/L (21-32) Blood Urea Nitrogen 12 mg/dL (7-18) Creatinine 0.5 mg/dL (0.5-1.0) Glomerular Filtration Rate Calc 99 mL/min (>90) Random Glucose 107 mg/dL (70-105) H Total Calcium 9.0 mg/dL (8.5-10.1) Magnesium Level 1.90 mg/dL (1.80-2.40) Total Bilirubin 0.4 mg/dL (0.2-1.0) Direct Bilirubin 0.1 mg/dL (0.0-0.3) Aspartate Amino Transf (AST/SGOT) 16 U/L (10-37) Alanine Aminotransferase (ALT/SGPT) 6 U/L (12-78) L Alkaline Phosphatase 70 U/L (50-136) Total Creatine Kinase 68 U/L (21-232) # Troponin I High Sensitivity 4 ng/L (4-50) B-Type Natriuretic Peptide 27 pg/mL (0-100) Total Protein 6.7 g/dL (6.0-8.3) Albumin 3.5 g/dL (3.5-5.0) Lipase 32 U/L (16-77) Labs Reviewed?: Yes EKG/XRAY/US/CT/MRI X-RAY Comment X-ray independently visualized by me REASON: SOB ORDERING PHYSICIAN: BESSIE MCDERMOTT PROCEDURE: CXR1VW - CHEST 1VW CHEST 1VW CLINICAL HISTORY: SOB COMPARISON: 02/28/2024 TECHNIQUE: Single view of the chest was obtained. FINDINGS: Lungs are clear. Cardiac size unremarkable. The bony structures and pacemaker are stable. IMPRESSION: No acute cardiopulmonary process identified. DICTATED BY: MARIANNE BARRERA DO DATE: 03/20/242024 [facility] MDM: 73-year-old female with a past medical history of Parkinson's who presents to the ED for evaluation of generalized weakness onset 2 weeks ago. Patient is reporting nausea, but denies any other associated symptoms at this time. On physical examination patient is in no acute distress. Initial vital signs are stable. CBC does not show any leukocytosis. Chemistries are unremarkable. Uri nalysis is consistent with what appears to be the start of a urinary tract infection. Patient was given IV antibiotics in the emergency department. Plan was to admit patient for further observation and management however patient declines. Patient will be discharged home with close outpatient follow up. Differential diagnosis: Weakness, UTI, nausea Previous outside records reviewed: Old ER visits. Need for hospitalization: Patient does not meet criteria for hospitalization. Need for emergency major/minor surgery: No Patient's prior external medical records from other ER visits were reviewed by me as indicated. Prior testing and results from previous visits were reviewed. Prior tests were taken into account with medical decision making and resource utilization, independent historian/historians were used to obtain complete medical history. I independently interpreted the test that were performed, results were reviewed by me and considered findings on radiology if ordered. Medical management and examination interpretation discussions were had by me with other qualified healthcare professionals as indicated for the patient's care. ED Course Orders Procedure Category Date Status Time Cbc With Differential LAB 03/20/24 Complete 17:58 Basic Metabolic Panel LAB 03/20/24 Complete 17:58 Urinalysis Profile LAB 03/20/24 Complete 17:58 B-Type Natriuretic LAB 03/20/24 Complete Peptide 17:58 Creatine Kinase, Total LAB 03/20/24 Complete 17:58 Lipase LAB 03/20/24 Complete 17:58 Hepatic Function Panel LAB 03/20/24 Complete 17:58 Magnesium LAB 03/20/24 Complete 17:58 Troponin I High LAB 03/20/24 Complete Sensitivity 17:58 Chest 1vw RAD 03/20/24 Resulted 17:58 Culture Urine VERN 03/20/24 Complete 18:39 0.9%Nacl 1000ml (Ns PHA 03/20/24 Complete 1000ml) 20:30 Aztreonam (Azactam) PHA 03/20/24 Complete 20:30 Vital Signs Date Time Temp Pulse Resp B/P (MAP) Pulse Ox O2 Delivery O2 Flow Rate FiO2 03/20/24 21:25 68 17 129/61 98 Room Air* 0 03/20/24 19:56 97.9 70 18 102/53 95 Room Air* 0 03/20/24 18:13 98.2 75 19 126/71 98 Room Air* 0 03/20/24 17:52 98.4 79 20 123/78 98 Room Air [address] [address] IMAGING REPORT Signed PATIENT: FLY GOMEZ MR#: [id number] : 1950 SEX: F AGE: 73 LOCATION: [facility] ORDER 58 STATUS: REG ER REPORT#: [id number] SERVICE 57 REASON: SOB ORDERING PHYSICIAN: BESSIE MCDERMOTT PROCEDURE: CXR1VW - CHEST 1VW CHEST 1VW CLINICAL HISTORY: SOB COMPARISON: 02/28/2024 TECHNIQUE: Single view of the chest was obtained. FINDINGS: Lungs are clear. Cardiac size unremarkable. The bony structures and pacemaker are stable. IMPRESSION: No acute cardiopulmonary process identified. DICTATED BY: MARIANNE BARRERA DO DATE: 03/20/242024 ELECTRONICALLY SIGNED BY: MARIANNE BARRERA DO DATE: 03/20/242027 DX & DISP Disposition: Discharge Departure Impression: Primary Impression: Acute UTI Condition: Stable Scripts Nitrofurantoin/Nitrofuran Mac (Macrobid) 100 Mg Cap 1 CAP PO BID for 7 Days, #14 CAP 0 Refills Prov: BESSIE MCDERMOTT 03/20/24 Referrals: BOGDAN BOYD MD (PCP) Time of Disposition: 21:54 I have reviewed the case, and I agree with, Diagnosis and Plan I performed this substantive portion of this visit. I have reviewed and personally made and approve the management plan that is documented in the note by myself or the BILLIE. I acknowledge full responsibility for the patient's management plan. BESSIE MCDERMOTT Mar 20, 2024 21:55
--- NOTE | 2024-03-20 22:15 | NUR ---
SPOKE TO IKE VIA PHONE AND NOTIFIED THAT PT IS DISCHARGED AND READY FOR CUSTOMER SUPPORT AGENT
== END 2024-03-20 22:17 | disposition home or self-care (01) ==
LOC: EDH 17:48
DX: N39.0 Urinary tract infection, site not specified (principal); I10 Essential (primary) hypertension; Z79.01 Long term (current) use of anticoagulants; Z79.899 Other long term (current) drug therapy; Z90.49 Acquired absence of other specified parts of digestive tract
CPT/HCPCS: 99284; 96365; 71045; 82550; 80076; 83735; 84484; 80048; 83880; 83690; 85025; 87086; 81001; 36415; J7030; J3490

== ENCOUNTER 2024-04-05 01:40 | Emergency (ER) | payer OTHER, MEDICARE ==
[~2024-04-05] VITALS: Ht 152.4 cm; Wt 55.3 kg
[~2024-04-05 01:40] MED LIST changes: +MACR100 PO
--- NOTE | 2024-04-05 02:00 | NUR ---
PATIENT STATES CAN NOT PROVIDE A URINE SAMPLE AT THIS TIME, JUST HAD URINATED.
[2024-04-05] MEDS ORDERED: SENN-216 PO (02:21)
--- NOTE | 2024-04-05 02:21 | ERN ---
ED Note History of Present Illness Stated Complaint: LLQ ABDOMINAL PAIN, RECENT UTI Chief Complaint: Abdominal Pain Time Seen by MD: 01:43 Dictation: This is a 73-year-old female who presented to the emergency room with complaints of left lower quadrant pain. She was recently treated for a UTI and completed antibiotic therapy. She also reported nausea and vomitings and felt sick to her stomach. She denied any fever chills and rigors does have a history of constipation. No history of any hematemesis or melena Temperature 98.1 pulse 64 respirations 16 blood pressure 151/84 with a pulse oximetry of 97% on room air Her chronic medical problems include atrial fibrillation on Eliquis, coronary artery disease has a AICD, hypertension, hypothyroidism and Parkinson's disease. Allergies: Coded Allergies: cefoxitin (Unverified Allergy, Unknown, 02/27/24) Home Meds Active Scripts Ondansetron (Ondansetron Odt) 4 Mg Tab.rapdis, 4 MG PO Q6HPRN PRN for nausea, #16 TAB 0 Refills Prov:BHUMIKA SOLORIO MD 04/05/24 Sennosides/Docusate Sodium (Colace 2-in-1 Tablet) 8.6 Mg-50 Mg Tablet, 1 TAB PO HS for constipation for 30 Days, #30 TAB 0 Refills Prov:BHUMIKA SOLORIO MD 04/05/24 Nitrofurantoin/Nitrofuran Mac (Macrobid) 100 Mg Cap, 1 CAP PO BID for 7 Days, #14 CAP 0 Refills Prov:BESSIE MCDERMOTT 03/20/24 Reported Medications Apixaban (Eliquis) 5 Mg Tablet, 5 MG PO BID, TAB 02/28/24 Metoprolol Succinate (Metoprolol Succinate) 50 Mg Tab.er.24h, 50 MG PO BID, TAB 02/28/24 Citalopram Hydrobromide (Citalopram HBr) 20 Mg Tablet, 20 MG PO DAILY, TAB 02/28/24 Montelukast Sodium (Montelukast Sodium) 10 Mg Tablet, 10 MG PO DAILY, TAB 02/28/24 Digoxin (Digoxin) 125 Mcg (0.125 Mg) Tablet, 125 MCG PO DAILY, TAB 02/28/24 Famotidine (Famotidine) 20 Mg Tablet, 20 MG PO HS, TAB 02/28/24 Carbidopa/Levodopa (Carbidopa-Levodopa 25-100 Tab) 25 Mg-100 Mg Tablet, 2 TAB PO QID 02/28/24 Rotigotine (Neupro) 2 Mg/24 Hour Patch.td24, 1 EACH TD DAILY 02/28/24 Levothyroxine Sodium (Levothyroxine Sodium) 100 Mcg Tablet, 100 MCG PO ACBKFST, TAB 02/28/24 Past Medical History Past Medical History: A-Fib, CAD, Heart Disease, Hypertension Additional Past Medical Hx: PARKINSONS Surgical History: Cholecystectomy Family History: Negative Social History: Negative History: Not Applicable RN Note Reviewed/Agreed w/PFSH: Yes Review of System Dictation Constitutional: Negative for fever,chills, and weight loss Eyes: Negative for injury, pain,redness, and discharge ENT: Negative for injury,pain or swelling Cardiovascular: Negative for chest pain, palpitations, and edema Respiratory: Negative for shortness of breath, cough, and wheezing, Abdomen/GI: Positive for abdominal pain, , and constipation denies nausea, vomiting, diarrhea Back: Negative for injury and pain : Negative for injury, bleeding and discharge MS/Extremity: Negative for injury and deformity Skin: Negative for rash, and discoloration Neuro: Negative for headache, weakness, numbness, tingling, and seizure Psych: Negative for suicide ideation, homicidal ideation, and hallucinations Initial Vital Sign VS Vital Signs Date Time Temp Pulse Resp B/P (MAP) Pulse Ox O2 Delivery O2 Flow Rate FiO2 04/05/24 01:41 98.1 64 16 151/84 97 Room Air 0 04/05/24 02:50 21 Physical Exam Dictation General: awake, alert, NAD Head/Face: Normocephalic, atraumatic Eyes: PERRL, EOMI, vision at baseline ENT: oral cavity clear, TMs clear, no signs of infection Neck: Trachea midline, supple, no nuchal rigidity Cardiovascular: RRR, normal S1/S2, No MRGs, no JVD Respiratory: CTAB, no respiratory distress, No rales or wheezes Abdomen: Soft,mild-tender, non-distended, normal bowel sounds, no guarding or rebound. Skin: Warm, dry, normal turgor, no rash MS/Extremity: Pulses equal, no cyanosis, neurovascular intact, FROM Neuro: COAx4, GCS 15, strength 5/5, CN 2-12 intact, normal cerebellar exam, normal gait, Psych: Normal behavior, mood, and affect normal Extremities-trace edema without any palpable cords, Homans sign is negative Results (Laboratory/Radiology) Laboratory/Radiology Laboratory Tests Test 04/05/24 02:15 Urine Color COLORLESS (YELLOW) Urine Appearance CLEAR (CLEAR) Urine pH 6.5 (5.0-8.0) Urine Specific [place] 1.008 (1.001-1.031) Urine Protein NEGATIVE mg/dL (NEGATIVE) Urine Glucose (UA) NEGATIVE mg/dL (NEGATIVE) Urine Ketones NEGATIVE mg/dL (NEGATIVE) Urine Occult Blood NEGATIVE (NEGATIVE) Urine Nitrate NEGATIVE (NEGATIVE) Urine Bilirubin NEGATIVE mg/dL (NEGATIVE) Urine Urobilinogen 0.2 mg/dL (0.2-1.0) Urine Leukocyte Esterase 75 Artie/uL (NEGATIVE) H Urine RBC 0-1 /HPF (0-1) Urine WBC 2-5 /HPF (0-1) H Urine Squamous Epithelial Cells RARE /HPF (0-2) Urine Bacteria RARE /HPF (None Seen) Labs Reviewed?: Yes CT Scan Comment: PATIENT: FLY GOMEZ MR#: [id number] : 1950 SEX: F AGE: 73 LOCATION: [facility] ORDER 56 STATUS: [facility] REPORT#: [id number] SERVICE 55 REASON: LEFT LOWER QUADRANT PAIN WITH BLOATING ORDERING PHYSICIAN: JENNIFER DUCKWORTH NP PROCEDURE: ABD PEL W - CT ABDOMEN/PELVIS W/CONTRAST CT ABDOMEN/PELVIS W/CONTRAST HISTORY: Pain COMPARISON: None TECHNIQUE: Multiple sequential axial images of the abdomen and pelvis were obtained from the dome of the diaphragm through symphysis pubis. Patient was given 75 cc of Omnipaque through intravenous route. Oral contrast was not given. FINDINGS: No pleural effusion is seen bilaterally. There is no evidence of parenchymal disease or pulmonary nodule of the visualized lower lungs. Degenerative changes of the thoracolumbar spine are present. The heart is not enlarged. Gallstones are seen in the distended gallbladder. Liver measures 16 cm. The liver, spleen, adrenal glands and pancreas are unremarkable. There is no evidence of hydronephrosis bilaterally. No evidence of renal stone is seen. Fecal material is seen in the colon. There are normal size retroperitoneal and mesenteric lymph nodes. No ascites is seen. Atherosclerotic changes are present. No CT evidence of acute appendicitis is seen. There is mild diverticulosis. Pelvic sidewalls are symmetric bilaterally. Bladder is well distended without wall thickening. IMPRESSION: 1. Gallstones in the distended gallbladder. Fecal material in the colon. CT was performed with one or more following dose reduction techniques: automated exposure control, adjustment of the mA and kv according to patient's size, or use of a iterative reconstruction technique. DICTATED BY: DAYTON GARCIA MD DATE: 02/28/24116 ELECTRONICALLY SIGNED BY: DATYON GARCIA MD DATE: 02/28/24 012 ED Course ED Course Orders Procedure Category Date Status Time Urinalysis Profile LAB 04/05/24 Complete 02:17 Magnesium Citrate PHA 04/05/24 Complete (Magnesium Citrate) 02:30 Culture Urine VERN 04/05/24 In Process 02:31 Ondansetron 4mg Inj PHA 04/05/24 Complete (Zofran 4mg Inj) 03:30 Current Medications Medications (Trade) Dose Ordered Sig/Sridevi Route PRN Reason Start Time Stop Time Status Last Admin Dose Admin Magnesium Citrate (Magnesium Citrate) 296 ml ONCE ONCE PO 04/05/24 02:30 04/05/24 03:15 DC Ondansetron HCl (zoFRAN 4MG INJ) 4 mg ONCE ONCE IVP 04/05/24 03:30 04/05/24 03:31 DC 04/05/24 03:16 Vital Signs Date Time Temp Pulse Resp B/P (MAP) Pulse Ox O2 Delivery O2 Flow Rate FiO2 04/05/24 04:58 98.2 65 18 115/49 98 Room Air* 0 21 04/05/24 02:50 82 18 150/79 98 Room Air* 0 21 04/05/24 01:41 98.1 64 16 151/84 97 Room Air 0 We will perform diagnostic labs, and administer medications according to the patient's complaint. Once the results are available, will review and personally interpreted the labs to rule out any acute life-threatening emergency the trach require immediate intervention and treatment. I will then re-evaluate the patient after treatment and diagnostic exams have return to determine whether the patient requires any further testing, can safely be discharged home or need further admission to hospital for additional treatment and evaluation. Urinalysis was done which showed small amount of leuk esterase but otherwise acceptable. I explained to the patient that her presentation of left lower quadrant may simply be from the constipation as evidenced by the recent CT scan of the abdomen and pelvis a few days ago. It is conceivable that she may have a little gastritis or perhaps antibiotic related nausea and vomitings. She improved dramatically and wanted to be discharged to home after symptomatic treatment. I have encouraged increased hydration, increased fiber and a bowel regimen Medical Decision Making MDM MDM: Differential diagnosis: Rationale: Tests considered and ordered secondary to shared decision making include: Previous outside records reviewed: Old ER visits. Risk of complication and/or morbidity or mortality of patient management: None Medications-Per medication reconciliation Need for hospitalization: Patient does not meet criteria for hospitalization. Need for emergency major/minor surgery: No There are no social concerns with this patient. Prescription drug management Prescriptions will include symptomatic care Patient's prior external medical records from other ER visits were reviewed by me as indicated. Prior testing and results from previous visits were reviewed. Prior tests were taken into account with medical decision making and resource utilization, independent historian/historians were used to obtain complete medical history. I independently interpreted the test that were performed, results were reviewed by me and considered findings on radiology if ordered. Medical management and examination interpretation discussions were had by me wi th other qualified healthcare professionals as indicated for the patient's care. Problem List Problem List: (1) Constipation (2) Cholelithiasis (3) Gastroesophageal reflux disease DX & DISP Disposition: Discharge Departure Impression: Primary Impression: Constipation Additional Impressions: Cholelithiasis, Gastroesophageal reflux disease Condition: Stable Scripts Ondansetron (Ondansetron Odt) 4 Mg Tab.rapdis 4 MG PO Q6HPRN PRN for nausea, #16 TAB 0 Refills Prov: BHUMIKA SOLORIO MD 04/05/24 Sennosides/Docusate Sodium (Colace 2-in-1 Tablet) 8.6 Mg-50 Mg Tablet 1 TAB PO HS for constipation for 30 Days, #30 TAB 0 Refills Prov: BHUMIKA SOLORIO MD 04/05/24 Additional Instructions: Patient and the caregiver have been informed of all the diagnostic tests and the imaging conducted during the today's visit to the emergency room and has verbalized understanding of the results I have personally reviewed and interpreted all diagnostic exams performed here in the ER today as well as the vital signs documented by the nursing staff. The patient is now being discharged to home and should follow up with the primary care physician or the specialist as directed by the ER staff. Follow-up with primary care provider in 1 to 2 days. Take medications as directed here in the emergency room. Okay to continue home medications unless otherwise discussed during your visit in the emergency room today. Return to your nearest emergency room if symptoms worsen or if there is no improvement. Call 911 if you need immediate assistance. Take Tylenol or Motrin [id number] as needed and if no contraindications are present. Increase oral hydration. A wound culture or urine culture was ordered here in the emergency room department please follow-up with primary care provider and advise them to get repeat ports from our facility. If you had any Beto wrap/splints that were applied here, please do not remove them until you see your primary care or specialty. Referrals: BOGDAN BOYD MD (PCP) BHUMIKA SOLORIO MD Apr 05, 2024 02:21
[2024-04-05 02:28] LABS: APPEARANCE,URINE CLEAR (CLEAR); BILIRUBIN,URINE NEGATIVE (NEGATIVE); COLOR,URINE COLORLESS (YELLOW); GLUCOSE, URINE (UA) NEGATIVE (NEGATIVE); KETONES,URINE NEGATIVE (NEGATIVE); LEUKOCYTE ESTERASE ,URINE 75 Leu/uL (NEGATIVE); NITRATE,URINE NEGATIVE (NEGATIVE); OCCULT BLOOD,URINE NEGATIVE (NEGATIVE); PH,URINE 6.5 (5.0-8.0); PROTEIN,URINE NEGATIVE (NEGATIVE); UROBILINOGEN,URINE 0.2 mg/dL (0.2-1.0)
[2024-04-05] MEDS ORDERED: MAGNESIUM CITRATE 296 ML SOLUTION PO ONE (02:30)
[2024-04-05 02:31] LABS: ADD UA MICROSCOPIC YES
[2024-04-05 02:32] LABS: BACTERIA,URINE RARE /HPF (None Seen); RBC,URINE 0-1 /HPF (0-1); SQUAMOUS EPITHELIAL CELL,UR RARE /HPF (0-2)
[2024-04-05] MEDS: ondanSETRON 4MG INJ IVP ONE (03:16)
[2024-04-05 04:58] VITALS: BP 115/49; PULSE 65; RESP 18; TEMP 98.2; O2SAT 98
[2024-04-05] MEDS ORDERED: ONDA-243 PO (05:12)
== END 2024-04-05 05:27 | disposition home or self-care (01) ==
LOC: EDH 01:40
DX: K59.00 Constipation, unspecified (principal); K80.20 Calculus of gallbladder without cholecystitis without obstruction; K21.9 Gastro-esophageal reflux disease without esophagitis; I10 Essential (primary) hypertension; I25.10 Atherosclerotic heart disease of native coronary artery without angina pectoris; I48.91 Unspecified atrial fibrillation; Z79.01 Long term (current) use of anticoagulants; Z79.899 Other long term (current) drug therapy; Z90.49 Acquired absence of other specified parts of digestive tract
CPT/HCPCS: 99283; 96374; 87086; 81001; J2405; 99285

== ENCOUNTER 2024-11-30 09:20 | Observation (INO) | payer MEDICARE, MEDICAID ==
[~2024-11-30] VITALS: Ht 152.4 cm; Wt 42.3 kg
[~2024-11-30 09:20] MED LIST changes: +CARB1CAP PO; -CARB1TAB35 PO; -MACR100 PO; +RIVA1PAT11 TD
[2024-11-30 09:50] LABS: IMMATURE GRANULOCYTE ABSOLUTE 0.03 K/uL (0-1); NUCLEATED RED BLOOD CELLS 0.0 % (0.0-0.19); PLATELET COUNT (AUTO) 274 K/uL (130-400); RED BLOOD CELL COUNT(AUTO) 4.09 MIL/uL (4.00-5.50); RED CELL DISTRIBUTION WIDTH 13.2 % (11.0-15.5); WHITE BLOOD COUNT (AUTO) 10.2 K/uL (4.8-10.8)
[2024-11-30 10:01] LABS: CREATININE 0.5 mg/dL (0.5-1.0); GLOMERULAR FILTR. RATE CALC 99.0 mL/min (>90); GLUCOSE,RANDOM 100.0 mg/dL (70-105); SODIUM SERUM 140.0 mmol/L (136-145); UREA NITROGEN, BLOOD 12.0 mg/dL (7-18)
[2024-11-30 10:06] LABS: CREATINE KINASE, TOTAL 18.0 U/L (21-232)
--- NOTE | 2024-11-30 10:13 | ERN ---
General Chief Complaint: Generalized Body Aches Stated Complaint: GBW Time Seen by MD: 09:23 Source: patient History of Present Illness Initial Comments PATIENT IS A 73-YEAR-OLD FEMALE COMING IN WITH GENERALIZED BODY WEAKNESS. PATIENT HAS BEEN FEELING THIS WAY FOR A COUPLE OF DAYS. PATIENT WAS SENT OVER FOR FURTHER EVALUATION. Allergies: Coded Allergies: cefoxitin (Unverified Allergy, Unknown, 02/27/24) Home Meds Reported Medications Carbidopa/Levodopa (Crexont ER 70 mg-280 mg Cap) 70 Mg-280 Mg Cap.ir.er, 2 CAP PO BID for 90 Days 06/16/24 Rivastigmine (Rivastigmine) 4.6 Mg/24 Hour Patch.td24, 1 EACH TD DAILY 06/16/24 Apixaban (Eliquis) 5 Mg Tablet, 5 MG PO BID, TAB 02/28/24 Metoprolol Succinate (Metoprolol Succinate) 50 Mg Tab.er.24h, 50 MG PO BID, TAB 02/28/24 Citalopram Hydrobromide (Citalopram HBr) 20 Mg Tablet, 20 MG PO DAILY, TAB 02/28/24 Montelukast Sodium (Montelukast Sodium) 10 Mg Tablet, 10 MG PO DAILY, TAB 02/28/24 Digoxin (Digoxin) 125 Mcg (0.125 Mg) Tablet, 125 MCG PO DAILY, TAB 02/28/24 Famotidine (Famotidine) 20 Mg Tablet, 20 MG PO HS, TAB 02/28/24 Rotigotine (Neupro) 2 Mg/24 Hour Patch.td24, 1 EACH TD DAILY 02/28/24 Levothyroxine Sodium (Levothyroxine Sodium) 100 Mcg Tablet, 100 MCG PO ACBKFST, TAB 02/28/24 Past Medical History Past Medical History: A-Fib, Anxiety Medical History Other: THYROID DISEASE, PARKINKSONS DISEASE Past Surgical History: Cholecystectomy Family History Family History: Negative Social History Social History: Negative Female( History) History: Not Applicable ROS Dictation CONSTITUTIONAL: NO CHILLS, NO FEVER, WEAKNESS, NO DIAPHORESIS, NO MALAISE. HEAD/FACE: NO SIGNS OF TRAUMA. EENT: NO EYE PAIN, NO BLURRED VISION, NO TEARING, NO DOUBLE VISION, NO EAR PAIN, NO EAR DISCHARGE, NO NOSE PAIN, NO NASAL CONGESTION, NO THROAT PAIN, NO THROAT SWELLING, NO MOUTH PAIN. RESPIRATORY: NO COUGH, NO ORTHOPNEA, NO SOB, NO STRIDOR, NO WHEEZING. CARDIOVASCULAR: NO CHEST PAIN, NO EDEMA, NO PALPITATIONS, NO SYNCOPE. GASTROINTESTINAL/ABDOMINAL: NO ABDOMINAL PAIN, NO CONSTIPATION, NO DIARRHEA, NO NAUSEA, NO VOMITING. GENITOURINARY: NO ABNORMAL DISCHARGE, NO DYSURIA, NO FREQUENT URINATION, NO HEMATURIA. NO COMPLAINTS OF PAIN IN THE GENITALS. MUSCULOSKELETAL: NO BACK PAIN, NO GOUT, NO JOINT PAIN, NO JOINT SWELLING, NO MUSCLE PAIN, NO MUSCLE STIFFNESS, NO NECK PAIN. INTEGUMENTARY: NO CHANGE IN COLOR, NO CHANGE IN HAIR/NAILS, NO DRYNESS, NO LESION, NO LUMPS, NO RASH. NEUROLOGICAL/PSYCH: NO ANXIETY, NOT DEPRESSED, NO EMOTIONAL PROBLEM, NO HEADACHE, NO NUMBNESS, NO PRE-EXISTING DEFICIT, NO HISTORY OF SEIZURES, NO TREMORS, NO WEAKNESS. HEMATOLOGIC/LYMPHATIC: NOT ANEMIC, NO HISTORY OF BLOOD CLOTS, NO APPARENT BLEEDING, NO BRUISING, GLANDS NOT SWOLLEN. ALL SYSTEMS NEGATIVE, EXCEPT NOTED. Physical Exam Physical Exam Dictation VITAL SIGNS: REVIEWED. GENERAL APPEARANCE: ALERT, ORIENTED X3, NO ACUTE DISTRESS, OBESE. HEAD AND FACE: NON-TRAUMATIC. EYES: PERRL, PINK CONJUNCTIVAS, EYELID NO TRAUMA, ANTERIOR CHAMBER CLEAR. EARS: PINNAS INTACT AND NO SIGNS OF TRAUMA OR ERYTHEMA. EAR CANALS CLEAR AND NO DISCHARGE. TMS NO ERYTHEMA. NOSE: NO DISCHARGE, NO BLEEDING. OROPHARYNX: MOUTH NORMAL, TEETH NO CARIES, TONGUE PINK. PHARYNX CLEAR, NO ERYTHEMA. TONSILS NO EXUDATES, NO ABSCESSES NOTED. MUCOUS MEMBRANE MOIST. NECK: SUPPLE, NON-TENDER, NO THYROMEGALY, NO MASSES, NO JVD, NO BRUITS. BREAST: DEFERRED. CHEST: NO TENDERNESS, NO CREPITUS, NO PARADOXICAL MOVEMENT, NO RETRACTIONS. LUNGS: CLEAR, WELL-VENTILATED, SYMMETRIC, NO RALES, NO WHEEZING, NO RHONCHI, NO STRIDOR, GOOD BREATH SOUNDS BILATERALLY. HEART: REGULAR RATE, REGULAR RHYTHM, NO MURMUR, NO GALLOPS. VASCULAR: NO PERIPHERAL EDEMA. ABDOMEN: SOFT, POSITIVE BOWEL SOUNDS, NONDISTENDED, NO GUARDING, NONTENDER, NO REBOUND, NO MASSES NO HEPATOMEGALY, NO SPLENOMEGALY, NO FRASER'S SIGN, NO HER NIAS. RECTAL: DEFERRED. GENITAL: DEFERRED. NEUROLOGICAL: NORMAL SPEECH, GROSS MOTOR FUNCTION INTACT, GROSS SENSORY FUNCTION INTACT. MUSCULOSKELETAL: NECK NONTENDER, FULL RANGE OF MOTION, BACK NONTENDER, FULL RANGE OF MOTION. EXTREMITIES: NONTENDER, FULL RANGE OF MOTION. SKIN: COLOR PINK, DRY, NO TURGOR, NO RASH, NO LACERATIONS, NO ABRASIONS, NO CONTUSIONS. LYMPHATICS: DEFERRED. Results Laboratory and Microbiology Lab and Micro Result Laboratory Tests Test 11/30/24 09:41 11/30/24 10:52 White Blood Count 10.2 K/uL (4.8-10.8) Red Blood Count 4.09 MIL/uL (4.00-5.50) Hemoglobin 13.2 g/dL (12.0-16.0) Hematocrit 38.5 % (36-48) Mean Corpuscular Volume 94.1 fL (79-99) Mean Corpuscular Hemoglobin 32.3 pg (27.0-33.0) Mean Corpuscular Hemoglobin Concent 34.3 g/dL (32.0-36.0) Red Cell Distribution Width 13.2 % (11.0-15.5) Platelet Count 274 K/uL (130-400) Mean Platelet Volume 8.9 fL (7.5-10.5) Immature Granulocyte % (Auto) 0.3 % (0-1) Neutrophils (%) (Auto) 79.8 % (40.0-77.0) H Lymphocytes (%) (Auto) 13.1 % (21.0-51.0) L Monocytes (%) (Auto) 6.5 % (3.0-13.0) Eosinophils (%) (Auto) 0.1 % (0.0-8.0) Basophils (%) (Auto) 0.2 % (0.0-5.0) Neutrophils # (Auto) 8.1 K/uL (1.8-7.7) H Lymphocytes # (Auto) 1.3 K/uL (1.0-4.8) Monocytes # (Auto) 0.7 K/uL (0.1-1.0) Eosinophils # (Auto) 0.01 K/uL (0.00-0.70) Basophils # (Auto) 0.02 K/uL (0.00-0.20) Absolute Immature Granulocyte (auto 0.03 K/uL (0-1) Nucleated Red Blood Cells 0.0 % (0.0-0.19) Sodium Level 140 mmol/L (136-145) Potassium Level 3.6 mmol/L (3.5-5.1) Chloride Level 105 mmol/L (101-111) Carbon Dioxide Level 27 mmol/L (21-32) Blood Urea Nitrogen 12 mg/dL (7-18) Creatinine 0.5 mg/dL (0.5-1.0) Glomerular Filtration Rate Calc 99 mL/min (>90) Random Glucose 100 mg/dL (70-105) Total Calcium 8.9 mg/dL (8.5-10.1) Total Creatine Kinase 18 U/L (21-232) #L Troponin I High Sensitivity 4 ng/L (4-50) Urine Color YELLOW (YELLOW) Urine Appearance CLEAR (CLEAR) Urine pH 6.5 (5.0-8.0) Urine Specific [place] 1.010 (1.001-1.031) Urine Protein NEGATIVE mg/dL (NEGATIVE) Urine Glucose (UA) NEGATIVE mg/dL (NEGATIVE) Urine Ketones NEGATIVE mg/dL (NEGATIVE) Urine Occult Blood NEGATIVE (NEGATIVE) Urine Nitrate NEGATIVE (NEGATIVE) Urine Bilirubin NEGATIVE mg/dL (NEGATIVE) Urine Urobilinogen 0.2 mg/dL (0.2-1.0) Urine Leukocyte Esterase NEGATIVE Artie/uL Labs Reviewed?: Yes EKG/XRAY/US/CT/MRI EKG Comment 11/30/2024 TIME 9:53 A.M. VENTRICULAR RATE 77 SINUS RHYTHM RATE SC [address] WAVE ELEVATION OR DEPRESSION MDM MDM: DIFFERENTIAL DIAGNOSIS: RATIONALE: TESTS CONSIDERED AND ORDERED SECONDARY TO SHARED DECISION MAKING INCLUDE: PREVIOUS OUTSIDE RECORDS REVIEWED: OLD ER VISITS. RISK OF COMPLICATION AND/OR MORBIDITY OR MORTALITY OF PATIENT MANAGEMENT: NONE MEDICATIONS-PER MEDICATION RECONCILIATION NEED FOR HOSPITALIZATION: PATIENT DOES NOT MEET CRITERIA FOR HOSPITALIZATION. NEED FOR EMERGENCY MAJOR/MINOR SURGERY: NO THERE ARE NO SOCIAL CONCERNS WITH THIS PATIENT. PRESCRIPTION DRUG MANAGEMENT PRESCRIPTIONS WILL INCLUDE SYMPTOMATIC CARE PATIENT'S PRIOR EXTERNAL MEDICAL RECORDS FROM OTHER ER VISITS WERE REVIEWED BY ME INDICATED. PRIOR TESTING AND RESULTS FROM PREVIOUS VISITS WERE REVIEWED. PRIOR TESTS WERE TAKEN INTO ACCOUNT WITH MEDICAL DECISION MAKING AND RESOURCE UTILIZATION, INDEPENDENT HISTORIAN/HISTORIANS WERE USED TO OBTAIN COMPLETE MEDICAL HISTORY. I INDEPENDENTLY INTERPRETED THE TEST THAT WERE PERFORMED, RESULTS WERE REVIEWED BY ME AND CONSIDERED FINDINGS ON RADIOLOGY IF ORDERED. MEDICAL MANAGEMENT AND EXAMINATION INTERPRETATION DISCUSSIONS WERE HAD BY ME WITH OTHER QUALIFIED HEALTHCARE PROFESSIONALS INDICATED FOR THE PATIENT'S CARE. ED Course Orders Procedure Category Date Status Time Cbc With Differential LAB 11/30/24 Complete 09:27 Chest 1vw RAD 11/30/24 Resulted 09:27 12 Lead Ekg Tracing- EKG 11/30/24 Resulted Technical 09:27 Creatine Kinase, Total LAB 11/30/24 Complete 09:27 Troponin I High LAB 11/30/24 Complete Sensitivity 09:27 Urinalysis Profile LAB 11/30/24 Complete 09:27 Basic Metabolic Panel LAB 11/30/24 Complete 09:27 Vital Signs Date Time Temp Pulse Resp B/P (MAP) Pulse Ox O2 Delivery O2 Flow Rate FiO2 11/30/24 13:05 102 18 147/81 98 Room Air* 0 11/30/24 12:11 98.1 98 18 143/62 99 Room Air* 0 11/30/24 10:48 98.1 85 18 125/62 99 Room Air* 0 11/30/24 09:33 98.1 102 18 110/62 98 Room Air* 0 11/30/24 09:24 98.4 82 18 128/74 99 Room Air DX & DISP Disposition: Inpatient Decision to Admit Time: 14:08 Departure Impression: Primary Impression: Failure to thrive Condition: Stable Referrals: BOGDAN BOYD MD (PCP) HO TAYLOR MD Nov 30, 2024 10:13
--- NOTE | 2024-11-30 10:33 | HMCIMG ---
EXAM: CR Chest, 1 View. CLINICAL HISTORY: WEAKNESS COMPARISON: Radiograph dated June 14, 2024 FINDINGS: LUNGS: The lungs show no infiltrate or other acute finding. PLEURAL SPACES: No evidence of pleural effusion or pneumothorax. MEDIASTINUM: Pacemaker leads overlie the right atrium and right ventricle. The cardiomediastinal silhouette is within normal limits. BONES: No aggressive appearing osseous lesion seen. IMPRESSION: No acute cardiopulmonary pathology is evident. /[place]
--- NOTE | 2024-11-30 10:56 | EKG ---
[facility] Test Date: 2024-11-30 Test Time: 09:53:55 Pat Name: FLY GOMEZ Department: ED Room: Gender: F Practice Architect: [id number] : 1950 Requested By: HO TAYLOR Order Number: [id number] Reading MD: Yuki Cronin Measurements Intervals [place] Rate: 77 P: 0 AL: 75 QRS: -57 QRSD: 94 T: 77 QT: 393 QTc: 446 Interpretive Statements Sinus rhythm Inferior infarct, old Compared to ECG 06/14/2024 18:00:50 Myocardial infarct finding now present First degree AV block no longer present Left ventricular hypertrophy no longer present Early repolarization no longer present Electronically Signed On 11-30-2024 11:21:57 CDT by Yuki Cronin Please click the below link to view image of tracing.
[2024-11-30 11:14] LABS: APPEARANCE,URINE CLEAR (CLEAR); GLUCOSE, URINE (UA) NEGATIVE (NEGATIVE); LEUKOCYTE ESTERASE ,URINE NEGATIVE Leu/uL (NEGATIVE); NITRATE,URINE NEGATIVE (NEGATIVE); OCCULT BLOOD,URINE NEGATIVE (NEGATIVE)
[2024-11-30 11:20] LABS: ADD UA MICROSCOPIC NO
--- NOTE | 2024-11-30 14:19 | NUR ---
PERSONAL PROVIDER AT BEDSIDE.
--- NOTE | 2024-11-30 14:45 | NUR ---
DR IKDD AT BEDSIDE.
[2024-11-30] MEDS: DEXTROSE 5 % AND 0.9 % NACL 1,000 ML IV SCH (14:54)
--- NOTE | 2024-11-30 15:44 | NUR ---
DCP:HOME SW met with pt, pt was slow with responses. Pt currently lives alone in her home. Pt does have a wheelchair that she uses at home. Pt does have a provider that works with her 8hrs a day and assists with all ADLs, home management, and meals. PCP is Dr. Brambila and uses [facility] for any RX needs. At ID pt will want to go home and family can assist with transportation. Addendum: 11/30/24 at 1549 by ISABELLE COOK SS Amended: Links added.
--- NOTE | 2024-11-30 19:01 | NUR ---
THE PATIENT REMOVED HER OWN IV ACCESS. WHEN ASKED WHY SHE REMOVED IT, THE PATIENT REFUSED TO ANSWER AND SAID SHE WAS UPSET. ORDER PLACED FOR ONE TO ONE SITTER PER PROTOCOL.
[2024-11-30] MEDS ORDERED: OMEP20CA12 PO (21:19)
[2024-11-30] MEDS ORDERED: TIZA4CAP8 PO (21:19)
[2024-12-01 01:20] VITALS: BP 144/76; PULSE 84; RESP 20; TEMP 98.5
--- NOTE | 2024-12-01 01:51 | HP ---
DATE OF SERVICE: 11/30/2024 HISTORY AND PHYSICAL PRESENTING COMPLAINT: Generalized body weakness and decreased oral intake. HISTORY OF PRESENT ILLNESS: A 73-year-old female with history of hypertension, Parkinson's disease, UTI and malnutrition, brought to the Emergency Room by EMS with above complaints. The patient called 911 and was brought to the Emergency Room with complaint of decreased oral intake and being thirsty. The patient has history of hypertension, Parkinson's disease, and recurrent UTI. The patient was in hospice. No family at the bedside upon arriving in the Emergency Room. Attempt to reach the family was unsuccessful. No documented fever or chills. Lab work was unremarkable in the Emergency Room and chest x-ray came back normal. Urinalysis also was clinked. PAST MEDICAL HISTORY: * UTI. * Hypertension. * Parkinson's disease. * Atrial fibrillation. * Hypothyroidism. PAST SURGICAL HISTORY: * Hysterectomy. * Cholecystectomy. * AICD placement. ALLERGIES: No known drug allergies. HOME MEDICATIONS: To be reviewed and made available. SOCIAL HISTORY: No alcohol, tobacco or illicit drug use. FAMILY HISTORY: Noncontributory. REVIEW OF SYSTEMS: Greater than 10 systems were reviewed, negative except as documented above. PHYSICAL EXAMINATION: GENERAL: Elderly female, awake. VITAL SIGNS: Temperature 98.1, pulse 102, respiratory rate 18, BP 147/81. EYES: No icterus. Pupils equal and reactive. HENT: No oral thrush seen. Moist oral mucosa. NECK: Supple. No JVD or thyromegaly. LUNGS: Good air entry. No rales. No rhonchi. CARDIOVASCULAR SYSTEM: S1 and S2 regular. No murmur heard. ABDOMEN: Full, soft and nontender. Bowel sound is present. CENTRAL NERVOUS SYSTEM: Awake, alert, and oriented x 3. No focal deficits. SKIN: No rashes. No itchiness. LYMPHATIC: No peripheral lymphadenopathy. MUSCULOSKELETAL: No joint swelling, erythema or tenderness. BACK: No deformity. No pressure ulcer. LABORATORY DATA: Sodium 140, potassium 3.6, BUN 12, creatinine 0.5. WBC 10.2, hemoglobin 13.2, platelet 274. Urinalysis is negative. RADIOLOGY: Chest x-ray is unremarkable. ASSESSMENT: A 73-year-old female with hypertension, presenting with witness. Current problems include: * Dehydration. * Hypothyroidism. * History of hypertension. * Atrial fibrillation. * History of Parkinson's disease. PLAN: * The patient admitted as a case of dehydration. * The patient will be placed on observation. * Start the patient on IV fluid. * Regular diet. * Lovenox for DVT prophylaxis. * Tylenol as needed for pain or fever. * Zofran as needed for nausea and vomiting. * The patient to be evaluated by geriatric social worker. TID: [id number] RECEIPT: [id number] [facility]
[2024-12-01 02:26] VITALS: O2SAT 95
[2024-12-01 04:00] VITALS: BP 140/70; PULSE 90; RESP 20; TEMP 98.1
[2024-12-01 06:17] LABS: IMMATURE GRANULOCYTE ABSOLUTE 0.01 K/uL (0-1); NUCLEATED RED BLOOD CELLS 0.0 % (0.0-0.19); PLATELET COUNT (AUTO) 236 K/uL (130-400); RED BLOOD CELL COUNT(AUTO) 3.79 MIL/uL (4.00-5.50); RED CELL DISTRIBUTION WIDTH 13.2 % (11.0-15.5); WHITE BLOOD COUNT (AUTO) 5.7 K/uL (4.8-10.8)
[2024-12-01 07:23] LABS: CREATININE 0.5 mg/dL (0.5-1.0); GLOMERULAR FILTR. RATE CALC 99.0 mL/min (>90); GLUCOSE,RANDOM 99.0 mg/dL (70-105); SODIUM SERUM 142.0 mmol/L (136-145); UREA NITROGEN, BLOOD 7.0 mg/dL (7-18)
[2024-12-01] MEDS: ENOXAPARIN SODIUM 30 MG/0.3 ML SQ SCH (07:45)
[2024-12-01 08:00] VITALS: BP 151/78; PULSE 84; RESP 16; TEMP 98.2; O2SAT 97
[2024-12-01] MEDS ORDERED: PoTASSium chl 10% ELIXIR 20MEQ 20 MEQ/15 ML UDCUP PO ONE (09:30)
--- NOTE | 2024-12-01 14:47 | NUR ---
PATIENT DISCHARGED HOME ID BAND AND IV REMOVED. DISCHARGE INSTRUCTIONS EXPLAINED AND GIVEN TO PATIENT. PATIENT VERBALIZED UNDERSTANDING. BELONGINGS PACKED AND TAKEN BY PATIENT. WHEELED DOWN TO PRIVATE CAR.
--- NOTE | 2024-12-01 14:51 | NUR ---
Nutritional Note: Chart, meds, and labs Reviewed. Recommend: -Ensure w/ trays -Nephrovite MVI combination of B vitamins may be used to treat or prevent vitamin deficiency due to poor diet. -Magic Cup 4oz w/ PM tray: Provides 9gm pro/ 290kcal and 20 vitamins and minerals. [place] to serve with meals as a means of adding calories and protein for unintended weight loss. -ProStat BID (30 ml) JELLO - Electrolyte replacements per protocol -Monitor feeding tolerance, %, wt, and labs -Document PO intake and wt daily. -If No BM >3days consider bowel stimulant. -Consider appetite stimulant if intake remains <75%for 3 days. -Schedule outpatient RD f/u for long-term nutrition care. - Notify RD if additional nutrition concerns arise. SEE RD Nutritional Assessment for additional assessment information. Addendum: 12/01/24 at [address] Amended: Links added.
--- NOTE | 2024-12-01 14:55 | DS ---
Discharge Summary DIAGNOSE(S): Generalized body weight has not decreased oral intake HOSPITAL COURSE SUMMARY: A 73-year-old female with history of hypertension, Parkinson's disease, UTI and malnutrition, brought to the Emergency Room by EMS with above complaints. The patient called 911 and was brought to the Emergency Room with complaint of decreased oral intake and being thirsty. The patient has history of hypertension, Parkinson's disease, and recurrent UTI. The patient was in hospice. Patient was placed IV fluids throughout the night. CBC and BMP reviewed this morning. Doses potassium was given due to a potassium of 3.4. Urinalysis was negative. Patient will be discharged. RADIOTELEGRAPH OPERATOR SERVICER(S): none PROCEDURE(S)/TREATMENT(S): PROBLEM(S): * Dehydration. * Hypothyroidism. * History of hypertension. * Atrial fibrillation. * History of Parkinson's disease. DISCHARGE INSTRUCTIONS: Patient to follow up with PCP This case with venous canceled by supervising physician . The case has been discussed and agreed upon. Home Meds Reported Medications Omeprazole (Omeprazole) 20 Mg Capsule.dr, 1 CAP PO DAILY for 30 Days, #30 CAP 0 Refills 11/30/24 Tizanidine HCl (Tizanidine HCl) 4 Mg Capsule, 4 MG PO Q6HPRN PRN for MUSCLE SPASMS, CAP 11/30/24 Carbidopa/Levodopa (Crexont ER 70 mg-280 mg Cap) 70 Mg-280 Mg Cap.ir.er, 2 CAP PO BID for 90 Days 06/16/24 Rivastigmine (Rivastigmine) 4.6 Mg/24 Hour Patch.td24, 1 EACH TD DAILY 06/16/24 Apixaban (Eliquis) 5 Mg Tablet, 5 MG PO BID, TAB 02/28/24 Metoprolol Succinate (Metoprolol Succinate) 50 Mg Tab.er.24h, 50 MG PO BID, TAB 02/28/24 Citalopram Hydrobromide (Citalopram HBr) 20 Mg Tablet, 20 MG PO DAILY, TAB 02/28/24 Montelukast Sodium (Montelukast Sodium) 10 Mg Tablet, 10 MG PO DAILY, TAB 02/28/24 Digoxin (Digoxin) 125 Mcg (0.125 Mg) Tablet, 125 MCG PO DAILY, TAB 02/28/24 Famotidine (Famotidine) 20 Mg Tablet, 20 MG PO HS, TAB 02/28/24 Rotigotine (Neupro) 2 Mg/24 Hour Patch.td24, 1 EACH TD DAILY 02/28/24 Levothyroxine Sodium (Levothyroxine Sodium) 100 Mcg Tablet, 100 MCG PO ACBKFST, TAB 02/28/24 Time spent arranging discharge: 1-30 minutes [facility] Dec 01, 2024 14:55
--- NOTE | 2024-12-01 16:13 | NUR ---
Pt DC home prior to any PT eval
== END 2024-12-01 15:02 | disposition home or self-care (01) ==
LOC: EDH 09:20 → INTOOBSV 14:07 → EDHIP 14:07 → 3CH 12-01 01:20
PROVIDERS: ADMIT Internal Medicine Infectious Disease; ATTEND Internal Medicine Infectious Disease
DX: I48.91 Unspecified atrial fibrillation (principal); E86.0 Dehydration; R62.7 Adult failure to thrive; E03.9 Hypothyroidism, unspecified; M79.10 Myalgia, unspecified site; R53.1 Weakness; I10 Essential (primary) hypertension; Z90.710 Acquired absence of both cervix and uterus; Z95.810 Presence of automatic (implantable) cardiac defibrillator; Z79.899 Other long term (current) drug therapy; Z98.890 Other specified postprocedural states
CPT/HCPCS: 96360; 96361 ×2; 99285; 82550; 83735; 84484; 80048 ×2; 85025 ×2; 81003; 36415 ×2; 71045; 93005; G0378 ×25; J1650